=== PATIENT | male | born 1960 | race African-American/Black ===

== ENCOUNTER 2017-02-25 10:06 | Inpatient (IN) ==
[2017-02-25] MEDS ORDERED: SODIUM CHLORIDE 0.9% 1,000 ML IV STA (10:30)
[2017-02-25] MEDS ORDERED: ONDANSETRON 4 MG/2 ML VIAL ONE (10:47)
[2017-02-25] MEDS ORDERED: HYDROmorphone 2 MG/1 ML VIAL ONE ×2 (10:48→13:27)
[2017-02-25 10:51] LABS: Basophils % 0.2 % (0.0-0.8); Hematocrit 39.6 VOL% (42.0-52.0); Hemoglobin 13.5 GM/DL (14.0-18.0); Immature Granulocytes Absolute 0.49 #; Lymphocytes # 1.7 10*3/uL (1.4-4.0); Lymphocytes % 6.7 % (21.2-54.2); Mean Corpuscular HGB Conc 34.1 GM/DL (32-36); Mean Corpuscular Hemoglobin 28 PG (27-34); Mean Corpuscular Volume 83.4 FL (87-102); Mean Platelet Volume 9.7 FL (9.6-12.0); Monocytes # 2.9 10*3/uL (0.11-0.8); Monocytes % 11.6 % (1.7-12.7); Neutrophils # 19.8 10*3/uL (1.4-7.4); Neutrophils % 79.5 % (38.7-73.9); Platelet Count 250 T/CUMM (130-400); Red Blood Count 4.75 MC/CUMM (3.8-5.5); Red Cell Distribution Width 13.5 % (9.3-17.3); White Blood Count 24.9 T/CUMM (4-12)
[2017-02-25] MEDS ORDERED: ONDANSETRON 4 MG/2 ML VIAL IV STA (10:59)
[2017-02-25] MEDS ORDERED: HYDROmorphone 2 MG/1 ML VIAL IV STA ×2 (10:59→14:14)
[2017-02-25 11:14] LABS: Band Neutrophils 5 % (0-10); Hypochromasia 1+; Lymphocytes 4 % (20-55); Platelet Estimate Normal; Segmented Neutrophils 80 % (50-85); Total Cells Counted 100
[2017-02-25 11:20] LABS: Albumin 3.5 G/DL (3.4-5.0); Bilirubin,Total 1.1 MG/DL (0.2-1.0); Calcium 9.4 MG/DL (8.5-10.1); Osmolality,Calculated 276.8 MOS/KG (273-304); Potassium 4.6 MMOL/L (3.5-5.1); Total Protein 7.7 G/DL (6.4-8.3)
--- NOTE | 2017-02-25 11:27 | CT Report ---
CT abdomen pelvis Indication: Hemoptysis Comparison: None available Technique: Axial CT imaging of the abdomen and pelvis is performed with intravenous and oral contrast. Contrast dose is 100 cc of Omnipaque 350. Findings: CT abdomen: The liver spleen pancreas and adrenal glands are normal in size and enhancement. No evidence of focal lesion is demonstrated in these solid organs. Kidneys are normal in size and enhancement. No evidence of hydronephrosis or nephrolithiasis is seen. Small hiatal hernia is present. The bowel caliber is normal and no wall thickening or adjacent inflammatory change is seen. No evidence of free fluid or free air is present. CT pelvis: The pelvic bowel appears within normal limits. Bladder shows no evidence of abnormality. The pelvic organs show no evidence of abnormality Impression: No evidence of abnormality demonstrated This CT exam was performed using one or more the following dose reduction techniques: Automated exposure control, adjustment of the MA and/or KV according to patient size, or use of iterative reconstruction technique. PROCEDURE INTERPRETED AT [facility] DEPARTMENT OF RADIOLOGY Final Report Signed by: Dr. Mike Bagley
--- NOTE | 2017-02-25 11:32 | CT Report ---
History: Chest pain. Coughing up blood. Fever Date: 02/25/2017 Study: CT chest with IV contrast with pulmonary embolus technique Comparison exam: No previous chest CT available Spiral CT sections were obtained through the lungs following the IV administration of 100 mL of Omnipaque 350 without immediate complication. Multiplanar reconstruction images are also evaluated. The CT exam was performed using one or more of the following dose reduction techniques: Automated exposure control, adjustment of the mA and/or kV according to patient size, or use of iterative reconstruction technique. There is no discrete filling defect within the pulmonary arterial tree to suggest acute pulmonary embolic disease. There is an area of focal airspace disease measuring up to 7.9 cm maximum diameter in the right lower lobe posteriorly inferiorly and medially which could represent pneumonia or could represent focal alveolar pulmonary hemorrhage in this patient with a history of hemoptysis. There is mild right-sided pleural effusion. There is mild platelike subsegmental atelectasis in the lower lungs bilaterally. There is no thoracic aortic aneurysm or dissection. There is no mediastinal lymphadenopathy by short axis diameter criteria. There is no mediastinal mass otherwise. Aside from a small hiatal hernia, partially visualized upper abdomen is grossly unremarkable where seen. Impression: No evidence of acute pulmonary embolic disease. Pneumonia versus aspiration versus localized alveolar pulmonary hemorrhage right lower lobe, not readily apparent on the chest x-ray from 02/24/2017. Small right pleural effusion PROCEDURE INTERPRETED AT [facility] DEPARTMENT OF RADIOLOGY Final Report Signed by: Dr. Marjan Duggan
--- NOTE | 2017-02-25 11:51 | Emergency Department Note ---
David Chowdary Brooke, am scribing for, and in the presence of, Jacob Gleason MD 10:50. Rosibel Chowdary Phillip K, MD, personally performed the services described in this documentation, ascribed by Elham Hernandez in my presence, and it is both accurate and complete . Arrival - Arrival Chief Complaint: Upper Respiratory Stated Complaint: Right side pain ED Nursing Triage Note: pt ambulatory to triage with c/o having right side pain with cough states coughing up bright red blood , painful inspirations. pt states onset yesterday around 1100 pt states he was seen here in ER for same c/ o and was told he had bronchitis and was sent home. pt states pain is not any better. Mode of Arrival: Ambulatory Limitations: No Limitations Source: Patient, Significant other, RN Notes Reviewed Time Seen by Provider: 02/25/17 10:33 - History of Present Illness HPI Narrative: Patient is a 56 year old male who presents to the ED with c/o right sided pain and coughing up blood. Patient was in the ED, yesterday, with the right sided pain and sent home with diagnosis of bronchitis. Patient says he started coughing up blood this morning. He says the blood is mixed with sputum. The sputum is "light yellow." Patient says the right side pain eased up some yesterday after being in the ED but worsened again and he says he "did not get any sleep last night." He describes the pain as sharp and worsened with any kind or movement or breathing. says Patient has had an intermittent fever. The last time his temperature was checked it was 100.4. During triage, his temperature was 98.9. Patient denies having any chills and blood in his stool/ melena. He has PMHx of GERD. Patient is not a smoker. Patient had a normal chest x-ray yesterday and a normal urinalysis. His white blood count was 16, 000. We placed him on Levaquin yesterday think he may have a pneumonia that had not manifested itself on chest x-ray. Allergies/Adverse Reactions: Allergies Allergy/AdvReac Type Severity Reaction Status Date / Time No Known Allergies Allergy Verified 02/25/17 10:19 Home Medications: Home Medications Medication Instructions Recorded Confirmed Type Levofloxacin Tab [Levaquin Tab] 500 mg PO DAILY #10 tablet 02/24/17 02/25/17 Rx Omeprazole [Prilosec] 20 mg PO DAILY 02/25/17 02/25/17 History guaiFENesin [Mucinex] 600 mg PO DAILY 02/25/17 02/25/17 History Review of System - Review of System 12 point system: reviewed and no additional remarkable complaints except as stated - Review of System Constitutional: Present: fever. Absent: chills Respiratory: Present: cough (blood and sputum). Absent: respiratory distress Gastrointestinal: Absent: melena, hematochezia Musculoskeletal: Present: other (Right side pain) Skin: Absent: rash Medical,Surgical,& Family Hx - Medical History Gastrointestinal: History of: GERD - Social History Smoking Status: Never smoker Frequency of Alcohol Use: None Type of Drug Use: None Exam Vital Signs: Vital Signs Temperature 98.9 F 02/25/17 10:15 Pulse Rate 92 H 02/25/17 10:15 Respiratory Rate 17 02/25/17 10:15 Blood Pressure 136/83 02/25/17 10:15 O2 Sat by Pulse Oximetry 97 02/25/17 10:15 - General General appearance: alert, in no apparent distress - Head Head exam: Present: atraumatic, normocephalic - Eye Eye exam: Present: normal appearance, PERRL, EOMI - ENT ENT exam: Present: normal exam - Neck Neck exam: Present: normal inspection - Chest Chest inspection: Present: normal inspection, symmetric chest wall rise - Respiratory Respiratory exam: Present: rales (Right base.), other (Left lung clear) - Cardiovascular Cardiovascular exam: Present: normal rhythm, tachycardia, normal heart sounds - Abdominal Exam Abdominal exam: Present: soft, tenderness (Diffuse tenderness to direct palpation but worse in the RUQ), normal bowel sounds. Absent: distention - Extremities Exam Extremities exam: Present: normal inspection - Back Exam Back exam: Present: normal inspection - Neurological Exam Neurological exam: Present: alert, oriented X3 - Psychiatric Psychiatric exam: Present: normal affect, normal mood - Skin Skin exam: Present: warm, dry, intact, normal color Course Course Narrative: Patient discussed with the hospitalist. Results - Labs CBC & BMP: 02/25/17 10:43 02/25/17 10:43 Lab Results: I have reviewed the patients labs Labs: Laboratory Tests 02/25/17 10:43 WBC 24.9 H D RBC 4.75 Hgb 13.5 L Hct 39.6 L MCV 83.4 L MCH 28 MCHC 34.1 RDW 13.5 Plt Count 250 MPV 9.7 Neut % (Auto) 79.5 H Lymph % (Auto) 6.7 L Coke % (Auto) 11.6 Eos % (Auto) 0.0 Baso % (Auto) 0.2 Neut # (Auto) 19.8 H Lymph # (Auto) 1.7 Coke # (Auto) 2.9 H Eos # (Auto) 0.0 Baso # (Auto) 0.0 Immature Gran % 2.0 Nucleated RBC % 0.0 Immature Gran # 0.49 Nucleated RBCs # 0.00 - Diagnostic Findings Procedure: CT Abdomen and Pelvis: report reviewed by me (No evidence of abnormality demonstrated.), CT: report reviewed by me (no evidence of acute pulmonary embolic disease.) Disposition Clinical Impression: Pneumonia right lower lobe, Hemoptysis Case discussed with: patient, patient's family Disposition: Still a Patient Condition: Guarded Additional Instructions: Admit to the hospitalist.
[2017-02-25] MEDS ORDERED: ALBUTEROL 2.5 MG/3 ML NEB RESP TX PRN (13:02)
[2017-02-25] MEDS ORDERED: cefTRIAXone 1,000 MG in SODIUM CHLORIDE 0.9% 100 ML IV STA (13:08)
[2017-02-25] MEDS ORDERED: cefTRIAXone 1,000 MG VIAL ONE (13:16)
--- NOTE | 2017-02-25 13:21 | Hospitalist History & Physical ---
<Charly Stroud - Last Filed: 02/25/17 13:05> Assessment and Plan (1) Sepsis Status: Acute Assessment and plan: At the time of ED presentation the patient was noted to be tachycardic with a heart rate of 92, white blood cell count was noted at 24.9, and CT chest reported right lower lobe pneumonia. The patient meets the sepsis criteria. Lactic acid was obtained and was noted at 1.5. We will start empiric antibiotic coverage after blood cultures have been obtained. We will gently rehydrate and reassess in a.m. Current Visit: Yes (2) Right lower lobe pneumonia Status: Acute Assessment and plan: CT chest suggested right lower lobe pneumonia. We will start empiric antibiotic coverage, inhaled bronchodilators, PPI's, placed sequential compression devices. In addition due to the hemoptysis, we will consult pulmonary to evaluate and assist during the clinical encounter. Current Visit: Yes History of Present Illness Chief complaint: Right flank pain/hemoptysis History of present illness: This is a 56-year-old male that presented to the ED at [facility] this morning for the evaluation of right side pain and hemoptysis. Patient has a medical history significant for gastroesophageal reflux disease; however the patient reports no significant surgical history. The patient reported the onset of symptoms 1 day prior to presentation. The patient reported to the ED here at [facility] for the above complaint where he was seen, diagnosed with bronchitis, and prescribed Levaquin at the time of discharge. He reported that his symptoms fail to improve. His purchased some Mucinex and the patient started to take it in an effort to alleviate his symptoms. Shortly after starting the Mucinex, the patient started to have a productive cough however the sputum was light yellow in color with some blood-tinged noted. The patient reported inability to sleep last night and the pain worsened upon minimal movement and breathing. The reported that the patient did have fever which was noted at 100.4; the patient denied chills and bloody stools. As the patient's symptoms fail to improve, his became alarmed and subsequently brought him back to the emergency room for further evaluation. The patient was assessed at the time of ED presentation. The patient temperature was noted at 98.9. The patient was tachycardic with a heart rate noted at 92. Labs were obtained; compete blood count reported white blood cell count of 24.9, hemoglobin 13.5, hematocrit 39.6, and platelet count of 250. Comprehensive metabolic profile reported sodium at 137, potassium 4.6, chloride 102, carbon dioxide 29, BUN 18, creatinine 1.40, glucose 136, calcium 9.4, total bilirubin 1.10, AST 16, ALT 17, total protein 7.7 and lactic acid was noted at 1.5. CT chest reported pneumonia versus aspiration versus localized developed pulmonary hemorrhage in the right lower lobe not really apparent on the chest x-ray from the previous day in small right pleural effusion. CT abdomen and pelvis was essentially unremarkable for any acute intra-abdominal processes. After brief discussion with both Dr. Gleason and Dr. Delarosa, the patient will be admitted to the hospitalist service for continuation of care. We have requested a pulmonology consultation to evaluate and assist during the clinical encounter. Home medications have been reviewed and reconciled. CODE STATUS discussed; patient is a FULL CODE. Home Medications Medication Instructions Recorded Confirmed Type Levofloxacin Tab [Levaquin Tab] 500 mg PO DAILY #10 tablet 02/24/17 02/25/17 Rx Omeprazole [Prilosec] 20 mg PO DAILY 02/25/17 02/25/17 History guaiFENesin [Mucinex] 600 mg PO DAILY 02/25/17 02/25/17 History Allergies Allergy/AdvReac Type Severity Reaction Status Date / Time No Known Allergies Allergy Verified 02/25/17 10:19 Medical,Surgical,& Family Hx - Medical History Medical History: noncontributory Gastrointestinal: History of: GERD - Social History Smoking Status: Never smoker Frequency of Alcohol Use: None Type of Drug Use: None 12 point system: reviewed and no additional remarkable complaints except as stated Exam - Constitutional Vitals: Period Temp Pulse Resp BP Sys/Markham Pulse Ox Last 24 Hr 98.9 F 92 17 136/83 97 General appearance: normal weight, mild distress - Head Head exam: Present: normal inspection, normocephalic, atraumatic - Eye Eye exam: Present: EOMI. Absent: conjunctival injection Pupils: Present: JERRY, normal accommodation - ENT ENT exam: Present: normal exam, normal external ear exam, normal oropharynx - Neck Neck exam: Present: normal inspection. Absent: lymphadenopathy, meningismus, thyromegaly - Respiratory Respiratory exam: Present: rales (Right lower base) - Cardiovascular Cardiovascular exam: Present: regular rate and rhythm, tachycardia - GI/Abdominal GI/Abdominal exam: Present: normal bowel sounds, tenderness (Right upper quadrant), soft - Extremities Exam Extremities exam: Present: normal inspection, normal capillary refill, full ROM , edema - Back Exam Back exam: Present: normal inspection - Neurological Exam Neurological exam: Present: alert, oriented X3, CN II-XII intact - Psychiatric Psychiatric exam: Present: normal affect, normal mood - Skin Skin exam: Present: normal color, warm, dry Results - Labs CBC & BMP: 02/25/17 10:43 02/25/17 10:43 Lab Results: I have reviewed the past 24 hour labs Sepsis - Sepsis Classification of Sepsis: Sepsis Possible / Suspected infection from: Right lower lobe pneumonia - Physical Exam Physical Exam: The patient was assessed at the time of ED presentation. The patient temperature was noted at 98.9. The patient was tachycardic with a heart rate noted at 92. Labs were obtained; compete blood count reported white blood cell count of 24.9 and lactic acid was noted at 1.5. CT chest reported pneumonia versus aspiration versus localized developed pulmonary hemorrhage in the right lower lobe. - Physical Exam Respiratory exam: rales (Right lower lung bases) Peripheral pulses: Radial (L): 2+, Radial (R): 2+, Dorsalis Pedis (L) PM: 2+, Dorsalis Pedis (R) PM: 2+, Posterior Tibialis (L): 2+, Posterior Tibialis (R): 2 + Cardiovascular exam: tachycardia Skin exam: normal color <Debbie Delarosa - Last Filed: 02/25/17 16:20> History of Present Illness History of present illness: Patient seen and examined independently of [employer], agree with history, assessment and plan as documented. Patient with several days of productive cough. Noted to have blood in his sputum of increasing amounts throughout the day. CT with probable pneumonia but possible alveolar hemorrhage. Starting on rocephin and azithromycin, breathing treatments. Will consult pulmonary for assistance. Exam - Constitutional Vitals: Period Temp Pulse Resp BP Sys/[place]ham Pulse Ox Last 24 Hr 98.9 F-99.9 F 92-101 17-20 136-149/67-92 94-97 Results - Labs CBC & BMP: 02/25/17 10:43 02/25/17 10:43
[2017-02-25] MEDS: cefTRIAXone 1,000 MG in SODIUM CHLORIDE 0.9% 100 ML IV SCH (15:03)
[2017-02-25] MEDS: AZITHROMYCIN INJ 500 MG in SODIUM CHLORIDE 0.9% 250 ML IV SCH (16:28)
[2017-02-25] MEDS: MORPHINE 2 MG/1 ML SYRINGE IV PRN ×2 (16:28→21:26)
[2017-02-25] MEDS: SODIUM CHLORIDE 0.9% 1,000 ML IV SCH (16:30)
--- NOTE | 2017-02-25 17:37 | Pulmonology Consult Note ---
Assessment and Plan (1) Sepsis Status: Acute Assessment and plan: The patient has gotten fairly ill but is doing a little better now. He will continue with fluids and antibiotics. Current Visit: Yes (2) Right lower lobe pneumonia Status: Acute Assessment and plan: Patient has an acute onset of right lower lobe pneumonia with blood-tinged sputum. This certainly looks like pneumococcal pneumonia or some type of bacterial pneumonia. He will continue with antibiotics. Current Visit: Yes History of Present Illness Chief complaint: Shortness of breath History of present illness: Mr. Garibay is a 56 year old black male that is very healthy and has had very little problems in the past. He has had some reflux problems and takes Prilosec. About 3 days ago he started having a little bit of sinus drainage and cough and then felt a little better. However the last 24-48 hours he started having more chest congestion, coughing and fever. He started coughing up some blood-tinged sputum. He now comes in with little more shortness of breath along with his congestion. He has been found to have right lower lobe pneumonia. He has never been a smoker and no history of asthma or other lung problems. Home Medications Medication Instructions Recorded Confirmed Type Levofloxacin Tab [Levaquin Tab] 500 mg PO DAILY #10 tablet 02/24/17 02/25/17 Rx Omeprazole [Prilosec] 20 mg PO DAILY 02/25/17 02/25/17 History guaiFENesin [Mucinex] 600 mg PO DAILY 02/25/17 02/25/17 History Allergies Allergy/AdvReac Type Severity Reaction Status Date / Time No Known Allergies Allergy Verified 02/25/17 10:19 - Constitutional Constitutional: Present: chills, fever(s), malaise - EENT Eyes: Absent: loss of vision Ears: Absent: decreased hearing Nose, mouth and throat: Present: nasal congestion. Absent: headache(s), sinus pressure - Cardiovascular Cardiovascular: Present: chest pain at rest, dyspnea. Absent: edema - Respiratory Respiratory: Present: cough, dyspnea, hemoptysis, pain on inspiration, change in phlegm color - Gastrointestinal Gastrointestinal: Present: heartburn. Absent: abdominal pain, change in bowel habits, dysphagia, nausea, vomiting - Musculoskeletal Musculoskeletal: Absent: arthralgias, muscle weakness - Neurological Neurological: Absent: abnormal speech, focal weakness, paresthesias Exam (Pulmonay) H&P - Constitutional Vitals: Period Temp Pulse Resp BP Sys/Markham Pulse Ox Last 24 Hr 98.9 F-99.9 F 92-101 17-20 136-149/67-92 94-97 General appearance: normal weight, mild distress - Head Head exam: Present: normal inspection, normocephalic - Eye Eye exam: Present: EOMI. Absent: scleral icterus - ENT ENT exam: Present: normal exam - Neck Neck exam: Absent: lymphadenopathy, thyromegaly - Respiratory Respiratory exam: Present: rales, other (Patient has good breath sounds bilaterally without any wheezing. He does have some crackles in the right base. ). Absent: accessory muscle use, wheezes - Cardiovascular Cardiovascular exam: Present: regular rate and rhythm. Absent: gallop, systolic murmur - GI/Abdominal GI/Abdominal exam: Present: normal bowel sounds, soft. Absent: organomegaly, tenderness - Extremities Exam Extremities exam: Absent: calf tenderness, edema - Neurological Exam Neurological exam: Present: alert, oriented X3, CN II-XII intact. Absent: motor sensory deficit - Psychiatric Psychiatric exam: Present: normal affect - Skin Skin exam: Present: warm, dry Medical,Surgical,& Family Hx - Medical History Psychological: No history of: Anxiety Disorders, ADHD, Behavior Problems, Bipolar Disorder, Depression, Previous Suicide Attempt, Psychiatric/Substance Abuse Tx, Schizophrenia, Violent Behavior, Psychiatric Problems Gastrointestinal: History of: GERD - Social History Smoking Status: Never smoker Frequency of Alcohol Use: None Type of Drug Use: None Results - Labs CBC & BMP: 02/25/17 10:43 02/25/17 10:43 - Diagnostic Findings Procedure: Chest x-ray: image reviewed by me, report reviewed by me (Very hard to see the infiltrate in the right base.), CT - chest: image reviewed by me, report reviewed by me (CT shows a right lower lobe consolidation.)
[2017-02-25] MEDS: ALBUTEROL/IPRATROPIUM 3 ML NEB RESP TX SCH (19:40)
[2017-02-25] MEDS: HYDROmorphone 2 MG/1 ML VIAL IV PRN (23:55)
[2017-02-26] MEDS: ALBUTEROL/IPRATROPIUM 3 ML NEB RESP TX SCH ×4 (00:14→20:20)
[2017-02-26] MEDS: SODIUM CHLORIDE 0.9% 1,000 ML IV SCH ×2 (00:50→09:52)
[2017-02-26] MEDS: ONDANSETRON 4 MG/2 ML VIAL IV PRN ×2 (05:42)
[2017-02-26] MEDS: HYDROmorphone 2 MG/1 ML VIAL IV PRN (05:43)
--- NOTE | 2017-02-26 05:59 | EKG Report ---
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
[2017-02-26] MEDS ORDERED: METOPROLOL TARTRATE 5 MG/5 ML VIAL IV ONE (06:03)
[2017-02-26] MEDS ORDERED: ENOXAPARIN 100 MG/ML SYRINGE SUBCUT ONE (06:08)
[2017-02-26 06:28] LABS: Basophils % 0.1 % (0.0-0.8); Hematocrit 37.8 VOL% (42.0-52.0); Hemoglobin 12.6 GM/DL (14.0-18.0); Immature Granulocytes % 0.5 %; Immature Granulocytes Absolute 0.08 #; Lymphocytes # 1.3 10*3/uL (1.4-4.0); Lymphocytes % 8.4 % (21.2-54.2); Mean Corpuscular HGB Conc 33.3 GM/DL (32-36); Mean Corpuscular Hemoglobin 28 PG (27-34); Mean Corpuscular Volume 84.8 FL (87-102); Mean Platelet Volume 10.5 FL (9.6-12.0); Monocytes # 1.3 10*3/uL (0.11-0.8); Monocytes % 8.7 % (1.7-12.7); Neutrophils # 12.3 10*3/uL (1.4-7.4); Neutrophils % 82.3 % (38.7-73.9); Platelet Count 247 T/CUMM (130-400); Red Blood Count 4.46 MC/CUMM (3.8-5.5); Red Cell Distribution Width 13.9 % (9.3-17.3); White Blood Count 14.9 T/CUMM (4-12)
[2017-02-26 06:53] LABS: Band Neutrophils 3 % (0-10); Burr Cells Slight; Lymphocytes 5 % (20-55); Ovalocytes Slight; Platelet Estimate Adequate; Segmented Neutrophils 86 % (50-85); Total Cells Counted 100
[2017-02-26 06:55] LABS: Magnesium 2.2 MG/DL (1.8-2.4)
[2017-02-26 06:57] LABS: Free T4 (Free Thyroxine) 0.87 NG/DL (0.76-1.46); Thyroid Stimulating Hormone 2.67 uIU/ml (0.358-3.74)
[2017-02-26 07:58] LABS: Albumin 2.7 G/DL (3.4-5.0); Bilirubin,Total 0.6 MG/DL (0.2-1.0); Calcium 8.5 MG/DL (8.5-10.1); Osmolality,Calculated 280.7 MOS/KG (273-304); Phosphorous 2.9 MG/DL (2.5-4.9); Potassium 4.1 MMOL/L (3.5-5.1); Total Protein 6.8 G/DL (6.4-8.3)
--- NOTE | 2017-02-26 08:00 | XRay Report ---
XR chest 1V portable Indication: Shortness of breath Comparison: Chest x-ray 02/24/2017 Technique: Portable AP chest was performed. Findings: Somewhat confluent airspace opacities are demonstrated bilaterally within the lung bases more prevalent within the left lung base. Heart size is borderline to minimally enlarged. Small right-sided pleural effusion suggested. Upper lungs are clear. Bones and soft tissues demonstrate no significant abnormalities. Impression: 1. Appearance of the chest is most suggestive of pulmonary edema, infectious process not excluded. 2. Small right-sided pleural effusion is present. 02/26/2017 7:57 AM PROCEDURE INTERPRETED AT [facility] DEPARTMENT OF RADIOLOGY Final Report Signed by: Dr. Bud Swan
[2017-02-26 08:14] LABS: Risk Ratio 6.7; VLDL CHOLESTEROL 20.6 MG/DL
[2017-02-26] MEDS ORDERED: METOPROLOL TARTRATE 25 MG TABLET PO SCH (09:00)
--- NOTE | 2017-02-26 09:20 | Pulmonology Progress Note ---
Pulmonary - PN: Subj Interval history: The patient is a 56-year-old black man has been very healthy. He came in with a couple days of fever cough and congestion and has a right lower lobe pneumonia. Last night he had atrial fibrillation and was moved to telemetry. He apparently is having trouble voiding and may be a little constipated also. His breathing seems to be about the same. His fever is down and his O2 saturations are okay. Exam (Progress Note) - Constitutional Vitals: Period Temp Pulse Resp BP Sys/Markham Pulse Ox Last 24 Hr 95.8 F-100.6 F 75-130 16-24 109-165/62-97 90-100 Exam: General appearance: normal weight, mild distress, his breathing is about the same. - Head Head exam: Present: normal inspection, normocephalic - Eye Eye exam: Present: EOMI. Absent: scleral icterus - ENT ENT exam: Present: normal exam - Neck Neck exam: Absent: lymphadenopathy, thyromegaly - Respiratory Respiratory exam: Present: He has some crackles in the right base but is moving air fairly well without wheezing. - Cardiovascular Cardiovascular exam: Present: His heart rate is irregular now but controlled - GI/Abdominal GI/Abdominal exam: Present: His abdomen is a little distended but is soft and nontender. - Extremities Exam Extremities exam: Absent: calf tenderness, edema, he has no signs of phlebitis. - Neurological Exam Neurological exam: Present: alert, oriented X3, CN II-XII intact. Absent: motor sensory deficit - Psychiatric Psychiatric exam: Present: normal affect - Skin Skin exam: Present: warm, dry Results - Labs CBC & BMP: 02/26/17 06:03 02/26/17 06:03 - Diagnostic Findings Procedure: Chest x-ray: image reviewed by me, report reviewed by me (Chest x- ray suggests some mild bibasilar changes now.) Assessment and Plan (1) Sepsis Status: Acute Assessment and plan: The patient has gotten fairly ill but is doing a little better now. His blood pressure is stable and he actually may be a little overloaded now. Current Visit: Yes (2) Right lower lobe pneumonia Status: Acute Assessment and plan: Patient has an acute onset of right lower lobe pneumonia with blood-tinged sputum. This certainly looks like pneumococcal pneumonia or some type of bacterial pneumonia. He will continue with antibiotics. Current Visit: Yes (3) Atrial fibrillation Status: Acute Assessment and plan: He is in atrial fibrillation now and is going to be monitored. He has been started on Lovenox. His heart rate is under good control. Current Visit: Yes
[2017-02-26] MEDS: PANTOPRAZOLE 40 MG TABLET PO SCH (10:50)
--- NOTE | 2017-02-26 12:35 | ECHO Report ---
Kailee Garibay 02/26/2017 Exam Date: 09:01 Referring Physician: Agustina Woo Technologist: MARY Age: 56 Ht (in): 68 Wt (lb): 210 MExam Location: [facility] Gender: Echo [id number]: Atrial fibrillation, RLL pneumonia,Indications:Bronchitis, Pleurisy, Hemoptysis, Sepsis BP: 131 / 62 HR: 87 Atrial fibrillationRhythm: GoodTechnical Quality: IMPRESSIONS Left ventricular ejection fraction is estimated at 60 %. Diastolic parameters are equivocal. The patient is in atrial fibrillation. Tricuspid regurgitation velocities suggest a RVSP of 19 mmHg plus the right atrial pressure. MEASUREMENTS (Male / Female) Normal Values 2D ECHO LV Diastolic Diameter PLAX 4.1 cm 4.2 - 5.9 / 3.9 - 5.3 cm LV Systolic Diameter PLAX 2.5 cm LV Fractional Shortening PLAX 38.7 % IVS Diastolic Thickness 1.4 cm 0.6 - 1.0 / 0.6 - 0.9 cm LVPW Diastolic Thickness 1.3 cm 0.6 - 1.0 / 0.6 - 0.9 cm RV Internal Dim ED PLAX 2.6 cm Aortic Root Diameter 3.2 cm LA Systolic Diameter LX 4.5 cm 3.0 - 4.0 / 2.7 - 3.8 cm DOPPLER TR Peak Velocity 217.0 cm/s TR Peak Gradient 18.8 mmHg FINDINGS Left Ventricle Normal left ventricular cavity size. Mild left ventricular hypertrophy. Left ventricular ejection fraction is estimated at 60 %. Diastolic parameters are equivocal. The patient is in atrial fibrillation. Right Ventricle The right ventricle is normal in size and function. Right Atrium The right atrium is mildly enlarged. Left Atrium The left atrium is mildly enlarged. Mitral Valve Morphologically normal mitral valve. Trivial mitral valve regurgitation. Aortic Valve Morphologically normal aortic valve without significant sclerosis or stenosis. There is no aortic regurgitation. Tricuspid Valve Morphologically normal tricuspid valve. Trace to mild tricuspid valve regurgitation. Tricuspid regurgitation velocities suggest a RVSP of 19 mmHg plus the right atrial pressure. Pulmonic Valve Morphologically normal pulmonic valve without significant stenosis. There is no pulmonic regurgitation. Pericardium Normal pericardium without effusion. Aorta Normal ascending aorta dimension. Cara Dye (Electronically Signed) 26 February 2017 Final Date: 12:34
--- NOTE | 2017-02-26 14:15 | Hospitalist Progress Note ---
Assessment and Plan - Time spent with patient Time spent with patient: Greater than 30 minutes (1) Urinary retention Status: Acute Assessment and plan: Straight cath performed. Okay to repeat as needed. Decrease opiates and treat constipation Current Visit: Yes (2) Constipation Status: Acute Assessment and plan: KUB ordered. Laxatives ordered. Current Visit: Yes (3) Right lower lobe pneumonia Status: Acute Assessment and plan: Continue Rocephin and Zithromax. Pulmonary following. Current Visit: Yes (4) Atrial fibrillation with rapid ventricular response Status: Acute Assessment and plan: Acute in nature. Likely related to his underlying infection. Secondary to increased cardiac output due to infection. Echo shows Left ventricular ejection fraction is estimated at 60 %. Diastolic parameters are equivocal. The patient is in atrial fibrillation. Tricuspid regurgitation velocities suggest a RVSP of 19 mmHg plus the right atrial pressure. Cardiology consult pending Current Visit: Yes Hospitalist: Subjective Interval history: Patient seen and examined. No acute events overnight. Case discussed with nursing staff. Labs reviewed. Patient seen and examined with Dr. Angel. The patient's family members and nurse are at the bedside. He reports constipation and urinary retention. Bladder scan shows 400 Plus mL's of urine. Straight cath was performed. KUB and laxatives have been ordered. Continue antibiotics for pneumonia. Patient was transferred to telemetry for new onset A. fib. Cardiology consult pending. Exam - Constitutional Vitals: Period Temp Pulse Resp BP Sys/Markham Pulse Ox Last 24 Hr 95.8 F-100.6 F 75-130 16-24 109-165/62-97 90-100 Exam: Constitutional System: Mild distress. No tremulousness. Head: Normocephalic, atraumatic. Ears, Nose and Throat System: No pain or tenderness. No epistaxis or discharge Eyes System: Pupils equal, round, and reactive. Extraocular muscles intact. Neck: Supple, without adenopathy, No jugular venous distention. Respiratory System: Chest rhonchi in the right lower lobe to auscultation. Cardiovascular System: Heart with irregular rate and rhythm GI System: Abdomen firm and tender to palpation. Normo active bowel sounds present. Musculoskeletal System: limbs with no pedal edema. Full distal pulses. Neurological System: No discernable sensory deficit. No aphasia Psychiatric System: Conversation is rational Results - Labs CBC & BMP: 02/26/17 06:03 02/26/17 06:03 Lab Results: I have reviewed the past 24 hour labs - Diagnostic Findings Procedure: Chest x-ray: image reviewed by me, report reviewed by me, KUB x-ray: pending
[2017-02-26] MEDS: POLYETHYLENE GLYCOL POWDER 17 GM PACK PO SCH (14:31)
[2017-02-26] MEDS: DOCUSATE SODIUM 100 MG CAPSULE PO SCH ×2 (14:31→21:20)
--- NOTE | 2017-02-26 14:35 | Cardiology Consult Note ---
Christy Chowdary April RN, am scribing for, and in the presence of, Francesco Milner MD 14:34. Assessment and Plan - Time spent with patient Time spent with patient: Greater than 30 minutes (Due to assessment, planning, documentation, medication) (1) Atrial fibrillation with rapid ventricular response Status: Acute Current Visit: Yes (2) GERD (gastroesophageal reflux disease) Status: Chronic Current Visit: Yes (3) Hemoptysis Status: Acute Current Visit: Yes (4) Right lower lobe pneumonia Status: Acute Current Visit: Yes History of Present Illness - Data of Consult Patient: new to practice Consult date: 02/26/17 Requesting Physician: Katia Carmona - Consult Narrative Reason for consult: New onset atrial fibrillation 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 Garibay is a 56 year old male who has never seen a disability specialist. He denies ever having had a heart catheterization or stress test done. He denies any known heart disease or heart rhythm problems. Medical history is positive for GERD. Surgical history includes right wrist. He reports he is a lifetime non- smoker. He lives at home with his . Mr. Garibay was admitted February 25, 2017 with complaints of right flank pain and hemoptysis. CT suggested right lower lobe pneumonia and he was started on antibiotic coverage and inhaled bronchodilators. This morning around 5 AM. Developed chest tightness in the center of his chest that came on at rest. He said that it felt like indigestion. He rated a 7 on a scale of 1-10. He also had nausea and vomiting associated with this pain. He denies having had any palpitations or dizziness. He says he has been short of breath since admission and the shortness of breath was no worse with this chest pain. The pain is reproducible to palpation. An EKG was done showing atrial fibrillation with rapid ventricular response, heart rate of 117. He says he was given a shot for his pain and it was relieved. He was given Lopressor 5 mg IV 1 days and started on Lovenox injections and Lopressor 12.5 mg p.o. daily. Currently he is resting in bed with oxygen in use via nasal cannula, O2 sat is 91%. He reports his chest tightness is beginning to return and rates it a 3 on a scale of 1-10 presently. 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 He has not had any palpitations now or earlier. He is having some abdominal discomfort. Bladder scan this morning showed 414 mL residual urine. Nursing staff is about to perform an in and out cath. An echocardiogram has been ordered. Lab data today: BC 14.9 hemoglobin 12.6 hematocrit 37.8 Sodium 138 potassium 4.1 chloride 103 CO2 26 BUN 17 creatinine 1.3 Glucose 177 hemoglobin A1c 6.6 Troponin negative 1 Triglycerides 103 cholesterol 134 LDL 75 HDL 20 Cardiology addendum Patient examined chart reviewed and discussed with nurse Jennifer Harrison RN. Patient admitted for right lower lobe pneumonia. He developed first onset atrial fibrillation. Patient is newly diagnosed diabetic. Blood sugar 223 today. A1c level 6.6. Lifetime non-smoker and nondrinker. No history of exertional angina or heart failure. 5 feet 2 inches tall, 210 pounds. GE reflux on Prilosec Patient has 17 siblings. Only 6 siblings do not have hypertension or diabetes. Father was diabetic and from stroke age 87. Mother was diabetic and from metastatic breast cancer age 63. CT chest negative for pulmonary embolus. Plan Begin sotalol 80 mg twice daily Echo Doppler IV antibiotics and nebs Risk factor modification CC: Raz Haynes MD - Home Medications and Allergies Home Medications: Home Medications Medication Instructions Recorded Confirmed Type Levofloxacin Tab [Levaquin Tab] 500 mg PO DAILY #10 tablet 02/24/17 02/25/17 Rx Omeprazole [Prilosec] 20 mg PO DAILY 02/25/17 02/25/17 History guaiFENesin [Mucinex] 600 mg PO DAILY 02/25/17 02/25/17 History Allergies/Adverse Reactions: Allergies Allergy/AdvReac Type Severity Reaction Status Date / Time No Known Allergies Allergy Verified 02/25/17 10:19 - Constitutional Constitutional: Present: as per HPI - EENT Eyes: Present: requires corrective lense. Absent: blurry vision Ears: Absent: decreased hearing, ear pain, tinnitus Nose, mouth and throat: Absent: epistaxis, headache(s), hoarseness, neck pain - Cardiovascular Cardiovascular: Present: chest pain at rest, dyspnea, dyspnea on exertion, orthopnea. Absent: diaphoresis, edema, radiating jaw, neck or arm pain, lightheadedness, palpitations - Respiratory Respiratory: Present: cough, dyspnea, hemoptysis, dyspnea on exertion. Absent: wheezing - Gastrointestinal Gastrointestinal: Present: abdominal pain, nausea, vomiting. Absent: constipation, diarrhea, hematemesis, hematochezia, melena - Genitourinary Genitourinary: Present: difficulty urinating, dysuria, flank pain. Absent: hematuria - Musculoskeletal Musculoskeletal: Absent: back pain, limited range of motion, muscle weakness - Neurological Neurological: Absent: abnormal gait, abnormal speech, confusion, dizziness, frequent falls, headache(s), syncope - Psychiatric Psychiatric: Absent: anxiety, depression - Hematologic/Lymphatic Hematologic/Lymphatic: Absent: easy bleeding, easy bruising Medical,Surgical,& Family Hx - Medical History Gastrointestinal: History of: GERD - Surgical History Orthopedic Surgeries: Surgical HX of;: Orthopedic Surgery (Right wrist) - Social History Smoking Status: Never smoker Have you smoked in the last 12 months: No Frequency of Alcohol Use: None Type of Drug Use: None Marital Status: Lives With:: Spouse Functional capacity: independent ambulation Physical Examination Vital Signs Temp Pulse Resp BP Pulse Ox 98.9 F 92 H 17 136/83 97 02/25/17 10:15 02/25/17 10:15 02/25/17 10:15 02/25/17 10:15 02/25/17 10:15 General: Present: Appears Well, No Apparent Distress, Other (Pleasant and cooperative) Neck: Present: Supple Neck, Midline Trachea, No Bruit Cardiac: Present: Irregularly Regular, Tachycardia Lungs: Present: Decreased Breath Sounds, Scattered Rhonchi, Oxygen (Via nasal cannula), No Wheezes Neuro: Absent: Resting Tremor, Essential Tremor Abdomen: Present: Active Bowel Sounds, Tender, Firm, Distended Skin: Absent: Rash, Suspicious Lesions Extremities: Present: Normal Gait, No Edema, Normal Upper Extr. Pulses, Normal Lower Extr. Pulses Result/EKG - Labs CBC & BMP: 02/26/17 06:03 02/26/17 06:03 Lab Results: I have reviewed the past 24 hour labs Labs: Laboratory Results - last 24 hr 02/25/17 02/25/17 02/25/17 10:43 10:43 13:01 WBC 24.9 H D RBC 4.75 Hgb 13.5 L Hct 39.6 L MCV 83.4 L MCH 28 MCHC 34.1 RDW 13.5 Plt Count 250 MPV 9.7 Neut % (Auto) 79.5 H Lymph % (Auto) 6.7 L [place] % (Auto) 11.6 Eos % (Auto) 0.0 Baso % (Auto) 0.2 Neut # (Auto) 19.8 H Lymph # (Auto) 1.7 [place] # (Auto) 2.9 H Eos # (Auto) 0.0 Baso # (Auto) 0.0 Total Counted 100 Immature Gran % 2.0 Nucleated RBC % 0.0 Immature Gran # 0.49 Segmented Neutrophils 80 Band Neutrophils 5 Lymphocytes 4 L Monocytes 11 Nucleated RBCs # 0.00 Platelet Estimate Normal Hypochromasia 1+ Ovalocytes [place] Cells Morphology Comment Sodium 137 Potassium 4.6 Chloride 102 Carbon Dioxide 29 Anion Gap 10.6 BUN 18 Creatinine 1.40 H GFR Calculation 77 BUN/Creatinine Ratio 12.00 Glucose 136 H POC Glucose Hemoglobin A1c Calculated Osmolality 276.8 Lactic Acid 1.5 Calcium 9.4 Phosphorus Magnesium Total Bilirubin 1.10 H AST 16 ALT 17 Alkaline Phosphatase 68 Troponin I Total Protein 7.7 Albumin 3.5 Globulin 4.2 H Albumin/Globulin Ratio 0.8 L Triglycerides Cholesterol LDL Cholesterol VLDL Cholesterol HDL Cholesterol Heart Disease Risk Ratio Free T4 TSH 3rd Generation 02/26/17 02/26/17 02/26/17 06:03 06:03 06:03 WBC 14.9 H D RBC 4.46 Hgb 12.6 L Hct 37.8 L MCV 84.8 L MCH 28 MCHC 33.3 RDW 13.9 Plt Count 247 MPV 10.5 Neut % (Auto) 82.3 H Lymph % (Auto) 8.4 L [place] % (Auto) 8.7 Eos % (Auto) 0.0 Baso % (Auto) 0.1 Neut # (Auto) 12.3 H Lymph # (Auto) 1.3 L [place] # (Auto) 1.3 H Eos # (Auto) 0.0 Baso # (Auto) 0.0 Total Counted 100 Immature Gran % 0.5 Nucleated RBC % 0.0 Immature Gran # 0.08 Segmented Neutrophils 86 H Band Neutrophils 3 Lymphocytes 5 L Monocytes 6 Nucleated RBCs # 0.00 Platelet Estimate Adequate Hypochromasia Ovalocytes Slight [place] Cells Slight Morphology Comment Sodium Potassium Chloride Carbon Dioxide Anion Gap BUN Creatinine GFR Calculation BUN/Creatinine Ratio Glucose POC Glucose Hemoglobin A1c Calculated Osmolality Lactic Acid Calcium Phosphorus Magnesium Total Bilirubin AST ALT Alkaline Phosphatase Troponin I < 0.015 Total Protein Albumin Globulin Albumin/Globulin Ratio Triglycerides Cholesterol LDL Cholesterol VLDL Cholesterol HDL Cholesterol Heart Disease Risk Ratio Free T4 0.87 TSH 3rd Generation 2.670 02/26/17 02/26/17 02/26/17 06:03 06:03 06:03 WBC RBC Hgb Hct MCV MCH MCHC RDW Plt Count MPV Neut % (Auto) Lymph % (Auto) [place] % (Auto) Eos % (Auto) Baso % (Auto) Neut # (Auto) Lymph # (Auto) [place] # (Auto) Eos # (Auto) Baso # (Auto) Total Counted Immature Gran % Nucleated RBC % Immature Gran # Segmented Neutrophils Band Neutrophils Lymphocytes Monocytes Nucleated RBCs # Platelet Estimate Hypochromasia Ovalocytes [place] Cells Morphology Comment Sodium 138 Potassium 4.0 4.1 Chloride 103 Carbon Dioxide 26 Anion Gap 13.1 BUN 17 Creatinine 1.30 GFR Calculation 85 BUN/Creatinine Ratio 13.00 Glucose 177 H POC Glucose Hemoglobin A1c Calculated Osmolality 280.7 Lactic Acid Calcium 8.5 Phosphorus 2.9 Magnesium 2.2 Total Bilirubin 0.60 AST 14 ALT 14 L Alkaline Phosphatase 64 Troponin I Total Protein 6.8 Albumin 2.7 L Globulin 4.1 H Albumin/Globulin Ratio 0.6 L Triglycerides 103 Cholesterol 134 LDL Cholesterol 75.0 VLDL Cholesterol 20.6 HDL Cholesterol 20 L Heart Disease Risk Ratio 6.70 Free T4 TSH 3rd Generation 02/26/17 02/26/17 06:03 06:57 WBC RBC Hgb Hct MCV MCH MCHC RDW Plt Count MPV Neut % (Auto) Lymph % (Auto) [place] % (Auto) Eos % (Auto) Baso % (Auto) Neut # (Auto) Lymph # (Auto) [place] # (Auto) Eos # (Auto) Baso # (Auto) Total Counted Immature Gran % Nucleated RBC % Immature Gran # Segmented Neutrophils Band Neutrophils Lymphocytes Monocytes Nucleated RBCs # Platelet Estimate Hypochromasia Ovalocytes [place] Cells Morphology Comment Sodium Potassium Chloride Carbon Dioxide Anion Gap BUN Creatinine GFR Calculation BUN/Creatinine Ratio Glucose POC Glucose 223 H Hemoglobin A1c 6.6 H Calculated Osmolality Lactic Acid Calcium Phosphorus Magnesium Total Bilirubin AST ALT Alkaline Phosphatase Troponin I Total Protein Albumin Globulin Albumin/Globulin Ratio Triglycerides Cholesterol LDL Cholesterol VLDL Cholesterol HDL Cholesterol Heart Disease Risk Ratio Free T4 TSH 3rd Generation - Diagnostic Findings Procedure: Chest x-ray: report reviewed by me, CT - chest: report reviewed by me - EKG EKG results: interpreted by me EKG shows: atrial fibrillation (RVR) Annia Chowdary Thomas, MD, personally performed the services described in this documentation, ascribed by Jennifer Harrison RN in my presence, and it is both accurate and complete .
[2017-02-26] MEDS: cefTRIAXone 1,000 MG in SODIUM CHLORIDE 0.9% 100 ML IV SCH (14:39)
[2017-02-26] MEDS: SOTALOL 80 MG TABLET PO SCH ×2 (14:42→21:20)
[2017-02-26] MEDS: AZITHROMYCIN INJ 500 MG in SODIUM CHLORIDE 0.9% 250 ML IV SCH (16:08)
[2017-02-26] MEDS ORDERED: traMADol 50 MG TABLET PO PRN (16:10)
[2017-02-26] MEDS ORDERED: KETOROLAC 15 MG/1 ML VIAL IV PRN (16:10)
[2017-02-26] MEDS ORDERED: HYDROmorphone 2 MG/1 ML VIAL IV PRN (16:11)
--- NOTE | 2017-02-26 16:48 | XRay Report ---
XR KUB Indication: Constipation. Abdominal pain. Comparison: None. Technique: Supine AP image of the abdomen was obtained. Findings: Lung bases are clear. There is no evidence of organomegaly. Bowel gas pattern is unremarkable. Renal contours are bilaterally symmetric. Bones and soft tissues demonstrate no significant abnormalities. Impression: 1. No active process is demonstrated within the abdomen or pelvis. 02/26/2017 4:45 PM PROCEDURE INTERPRETED AT [facility] DEPARTMENT OF RADIOLOGY Final Report Signed by: Dr. Bud Swan
[2017-02-27] MEDS: ALBUTEROL/IPRATROPIUM 3 ML NEB RESP TX SCH ×4 (00:25→19:31)
[2017-02-27 05:20] LABS: Basophils % 0.2 % (0.0-0.8); Eosinophils # 0.1 10*3/uL (0.0-0.87); Eosinophils % 0.5 % (0.00-10.9); Hematocrit 32.5 VOL% (42.0-52.0); Hemoglobin 11.1 GM/DL (14.0-18.0); Immature Granulocytes % 0.8 %; Immature Granulocytes Absolute 0.11 #; Lymphocytes # 1.5 10*3/uL (1.4-4.0); Mean Corpuscular HGB Conc 34.2 GM/DL (32-36); Mean Corpuscular Hemoglobin 28 PG (27-34); Mean Corpuscular Volume 82.7 FL (87-102); Mean Platelet Volume 10.4 FL (9.6-12.0); Monocytes # 1.2 10*3/uL (0.11-0.8); Monocytes % 8.2 % (1.7-12.7); Neutrophils # 11.6 10*3/uL (1.4-7.4); Neutrophils % 80.3 % (38.7-73.9); Platelet Count 236 T/CUMM (130-400); Red Blood Count 3.93 MC/CUMM (3.8-5.5); White Blood Count 14.5 T/CUMM (4-12)
[2017-02-27 05:42] LABS: Hypochromasia 1+; Ovalocytes Slight; Platelet Estimate Adequate
[2017-02-27 05:53] LABS: Albumin 2.4 G/DL (3.4-5.0); Bilirubin,Total 0.8 MG/DL (0.2-1.0); Calcium 7.9 MG/DL (8.5-10.1); Magnesium 2.3 MG/DL (1.8-2.4); Phosphorous 2.3 MG/DL (2.5-4.9); Total Protein 5.8 G/DL (6.4-8.3)
[2017-02-27 05:54] LABS: Potassium 4.1 MMOL/L (3.5-5.1)
--- NOTE | 2017-02-27 08:11 | Physician Query Form ---
CLICK EDIT DOCUMENT TO SELECT QUERY ANSWER --> OK --> SIGN Domenica Swan RN, CCDS Certified Clinical Cuffer W) [phone] (f) [phone] [email or web address] PROVIDERS: Make your selection(s) from the choices in EACH section by typing an "x" and enter comments in the comment section. Please use your independent medical judgment in providing your response. This request does not imply that any particular answer is desired or expected. CLINICAL INDICATORS: (Providers should not edit this section) The below diagnosis was documented in the record, but is not consistently noted in subsequent documentation. The medical record indicates that the patient was admitted with pneumonia, WBC of 24.9, Lactic Acid of 1.5, Normal Temp in the ER, Respirations of 17, Heart Rate of 92 (patient was later found to be in AF with RV), Sepsis is mentioned. As the attending MD can you please clarify if the Sepsis was ? Diagnosis: Sepsis Please clarify the following: (X ) The above diagnosis was monitored, evaluated, and/or treated and is a confirmed diagnosis ( ) The above diagnosis was ruled out ( ) The above diagnosis is still a likely, suspected, probable diagnosis ( ) Other, please specify: ( ) Clinically unable to determine COMMENTS: PLEASE ALSO DOCUMENT RESPONSE IN PROGRESS NOTES AND/OR DISCHARGE SUMMARY Use of terms such as suspected, likely, or probable (associated with a specific diagnosis that is being evaluated, monitored, or treated as if it exists) are acceptable and can be restated in the discharge summary if not ruled out. MTDD
--- NOTE | 2017-02-27 09:28 | Pulmonology Progress Note ---
Pulmonary - PN: Subj Interval history: The patient is a 56-year-old black man has been very healthy. He came in with a couple days of fever cough and congestion and has a right lower lobe pneumonia. He developed atrial fibrillation and is being monitored on telemetry. He had trouble voiding and required in and out catheterization yesterday. Today he says he is feeling much better. He is voiding better but still not had a bowel movement. His sputum is clearing and his cough is better. He is having less shortness of breath. He is still having atrial fibrillation but overall feels better. Exam (Progress Note) - Constitutional Vitals: Period Temp Pulse Resp BP Sys/[place] Pulse Ox Last 24 Hr 96.1 F-100.9 F 94-128 16-20 101-131/59-76 89-99 Exam: General appearance: normal weight, no distress, his breathing is much better today and he looks more comfortable. - Head Head exam: Present: normal inspection, normocephalic - Eye Eye exam: Present: EOMI. Absent: scleral icterus - ENT ENT exam: Present: normal exam - Neck Neck exam: Absent: lymphadenopathy, thyromegaly - Respiratory Respiratory exam: Present: He has some crackles in the right base but is moving air fairly well without wheezing. - Cardiovascular Cardiovascular exam: Present: His heart rate is irregular now but controlled. - GI/Abdominal GI/Abdominal exam: Present: His abdomen is a little distended but is soft and nontender. - Extremities Exam Extremities exam: Absent: calf tenderness, edema, he has no signs of phlebitis. - Neurological Exam Neurological exam: Present: alert, oriented X3, CN II-XII intact. Absent: motor sensory deficit - Psychiatric Psychiatric exam: Present: normal affect - Skin Skin exam: Present: warm, dry Results - Labs CBC & BMP: 02/27/17 04:32 02/27/17 04:32 Assessment and Plan (1) Sepsis Status: Acute Assessment and plan: The patient is much better and his hemodynamics are little more stable. Current Visit: Yes (2) Right lower lobe pneumonia Status: Acute Assessment and plan: Patient has an acute onset of right lower lobe pneumonia with blood-tinged sputum. This certainly looks like pneumococcal pneumonia or some type of bacterial pneumonia. So far the cultures are negative. His breathing is better and his sputum is clearing. Will check a chest x-ray tomorrow. Current Visit: Yes (3) Atrial fibrillation Status: Acute Assessment and plan: He is in atrial fibrillation now and is going to be monitored. He has been started on Lovenox. His heart rate is under good control. Current Visit: Yes
[2017-02-27] MEDS: SOTALOL 80 MG TABLET PO SCH ×2 (09:41→21:50)
[2017-02-27] MEDS: POLYETHYLENE GLYCOL POWDER 17 GM PACK PO SCH (09:42)
[2017-02-27] MEDS: PANTOPRAZOLE 40 MG TABLET PO SCH (09:42)
[2017-02-27] MEDS: DOCUSATE SODIUM 100 MG CAPSULE PO SCH ×2 (09:42→21:50)
[2017-02-27] MEDS: AZITHROMYCIN 250 MG TABLET PO SCH (09:49)
--- NOTE | 2017-02-27 11:07 | Hospitalist Progress Note ---
Assessment and Plan - Time spent with patient Time spent with patient: Less than 30 minutes (1) Right lower lobe pneumonia Status: Acute Assessment and plan: 02/27/17 -No temp noted (98.9). WBC improving down to 14.5 from 14.9. Hemodynamically stable. Sputum culture: normal barrett at 48 hours. Blood culture final pending. Pulmonary is following and greatly appreciate recommendations with care. Repeat chest xray ordered. Will continue antibiotic therapy. repeat labs in a.m. Current Visit: Yes (2) Atrial fibrillation Status: Acute Assessment and plan: Atrial fib with controlled rate (95-100). Will continue to monitor. Current Visit: Yes (3) Urinary retention Status: Acute Assessment and plan: 02/27/17 - No episodes throughout the night, verbalized no urinating problems this morning. Current Visit: Yes Hospitalist: Subjective Interval history: 02/27/17 _ Mr Garibay verbalized feeling much better this a.m. Patient examined and chart reviewed. He developed urinary retention yesterday and had to be in and out cath'd for relief. No new events were reported by patient or family. He states he has been doing better and no problems with urinating this morning. No tenderness to abdomen or pelvic/bladder area. Bowel sounds positive. No lower extremity edema noted. No wheezing noted, crackles noted. Denies shortness of breath, denies chest pain. Exam - Constitutional Vitals: Period Temp Pulse Resp BP Sys/[place] Pulse Ox Last 24 Hr 96.1 F-100.9 F 94-128 16-20 101-131/59-76 89-99 General appearance: normal weight - Head Head exam: Present: normal inspection - Eye Eye exam: Present: EOMI Pupils: Present: JERRY - Neck Neck exam: Present: normal inspection. Absent: thyromegaly - Respiratory Respiratory exam: Present: rhonchi. Absent: wheezes - Cardiovascular Cardiovascular exam: Present: irregular rhythm (HR 95 - 100) - GI/Abdominal GI/Abdominal exam: Present: normal bowel sounds, soft. Absent: guarding, tenderness, rebound - Extremities Exam Extremities exam: Present: full ROM. Absent: edema - Neurological Exam Neurological exam: Present: alert, oriented X3, CN II-XII intact - Psychiatric Psychiatric exam: Present: normal affect, other (conversational rational) - Skin Skin exam: Present: normal color, warm, dry, other (reports feeling chilled this morning, Temp 98.9 ) Results - Labs CBC & BMP: 02/27/17 04:32 02/27/17 04:32 Lab Results: I have reviewed the past 24 hour labs
--- NOTE | 2017-02-27 11:54 | Cardiology Progress Note ---
Christy Chowdary April RN, am scribing for, and in the presence of, Francesco Milner MD 11:54. 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 He denies ever having had a heart catheterization or stress test done. He denies any known heart disease or heart rhythm problems. Medical history is positive for GERD. Surgical history includes right wrist. He reports he is a lifetime non-smoker. He lives at home with his . Mr. Garibay was admitted February 25, 2017 with complaints of right flank pain and hemoptysis. CT suggested right lower lobe pneumonia and he was started on antibiotic coverage and inhaled bronchodilators. This morning around 5 AM. Developed chest tightness in the center of his chest that came on at rest. He said that it felt like indigestion. He rated a 7 on a scale of 1-10. He also had nausea and vomiting associated with this pain. He denies having had any palpitations or dizziness. He says he has been short of breath since admission and the shortness of breath was no worse with this chest pain. The pain is reproducible to palpation. An EKG was done showing atrial fibrillation with rapid ventricular response, heart rate of 117. He says he was given a shot for his pain and it was relieved. He was given Lopressor 5 mg IV 1 days and started on Lovenox injections and Lopressor 12.5 mg p.o. daily. Echocardiogram with ejection fraction of 60%. February 27, 2017: Mr. Garibay is seen resting in bed in no acute distress. He reports he feels much better today and does indeed look better. He denies any further chest pain. Oxygen is in use via nasal cannula. He states he continues to be short of breath, but that it has improved. He had difficulty urinating yesterday and required in and out cath. He denies any further difficulty with urination. Lopressor was changed to sotalol 80 mg p.o. twice daily yesterday. 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 He states he has not had a bowel movement, but KUB done yesterday indicated no active process within the abdomen or pelvis. Lab data today: White count 14.5 hemoglobin 11.1 hematocrit 32.5 Sodium 136 potassium 4.1 chloride 102 CO2 25 BUN 20 creatinine 1.3 Glucose 110 Magnesium 2.3 Impression: Right lower lobe pneumonia New onset atrial fibrillation Newly diagnosed diabetic GE reflux on [facility] Cardiology addendum. Patient examined chart reviewed . Patient has converted chemically with sotalol. Echo shows ejection fraction of 60% with mildly dilated left atrium, aortic valve sclerosis, normal RV function, mild TR PA pressure 40 with no effusion. Blood pressure 134/78 Plan IV antibiotics and nebs Sotalol 80 mg twice daily Exam (Progress Note) - Constitutional Vitals: Period Temp Pulse Resp BP Sys/[place] Pulse Ox Last 24 Hr 96.1 F-100.9 F 94-128 16-20 101-131/59-76 89-99 Exam: General: Present: Appears Well, No Apparent Distress, Other (Pleasant and cooperative) Neck: Present: Supple Neck, Midline Trachea, No Bruit Cardiac: Present: Irregularly Regular, Tachycardia Lungs: Present: Decreased Breath Sounds, Scattered Rhonchi, Oxygen (Via nasal cannula), No Wheezes Neuro: Absent: Resting Tremor, Essential Tremor Abdomen: Present: Active Bowel Sounds, non-tender, Firm, not distended Skin: Absent: Rash, Suspicious Lesions Extremities: Present: Normal Gait, No Edema, Normal Upper Extr. Pulses, Normal Lower Extr. Pulses Result/EKG - Labs CBC & BMP: 02/27/17 04:32 02/27/17 04:32 Lab Results: I have reviewed the past 24 hour labs Labs: Laboratory Results - last 24 hr 02/27/17 02/27/17 04:32 04:32 WBC 14.5 H RBC 3.93 Hgb 11.1 L Hct 32.5 L MCV 82.7 L MCH 28 MCHC 34.2 RDW 14.0 Plt Count 236 MPV 10.4 Neut % (Auto) 80.3 H Lymph % (Auto) 10.0 L [place] % (Auto) 8.2 Eos % (Auto) 0.5 Baso % (Auto) 0.2 Neut # (Auto) 11.6 H Lymph # (Auto) 1.5 [place] # (Auto) 1.2 H Eos # (Auto) 0.1 Baso # (Auto) 0.0 Immature Gran % 0.8 Nucleated RBC % 0.0 Immature Gran # 0.11 Nucleated RBCs # 0.00 Platelet Estimate Adequate Hypochromasia 1+ Ovalocytes Slight Morphology Comment Sodium 136 Potassium 4.1 Chloride 102 Carbon Dioxide 25 Anion Gap 13.1 BUN 20 H Creatinine 1.30 GFR Calculation 85 BUN/Creatinine Ratio 15.00 Glucose 110 H Calculated Osmolality 275.0 Calcium 7.9 L Phosphorus 2.3 L Magnesium 2.3 Total Bilirubin 0.80 AST 16 ALT 12 L Alkaline Phosphatase 58 Total Protein 5.8 L Albumin 2.4 L Globulin 3.4 Albumin/Globulin Ratio 0.7 L Annia Chowdary Thomas, MD, personally performed the services described in this documentation, ascribed by Jeninfer Harrison RN in my presence, and it is both accurate and complete .
[2017-02-27] MEDS: cefTRIAXone 1,000 MG in SODIUM CHLORIDE 0.9% 100 ML IV SCH (13:46)
[2017-02-28] MEDS: ALBUTEROL/IPRATROPIUM 3 ML NEB RESP TX SCH ×4 (01:10→20:03)
[2017-02-28 05:43] LABS: Basophils # 0.1 10*3/uL (0.0-0.2); Basophils % 0.4 % (0.0-0.8); Eosinophils # 0.1 10*3/uL (0.0-0.87); Eosinophils % 0.8 % (0.00-10.9); Hematocrit 35.7 VOL% (42.0-52.0); Hemoglobin 12.1 GM/DL (14.0-18.0); Immature Granulocytes % 1.5 %; Immature Granulocytes Absolute 0.22 #; Lymphocytes # 1.6 10*3/uL (1.4-4.0); Lymphocytes % 10.8 % (21.2-54.2); Mean Corpuscular HGB Conc 33.9 GM/DL (32-36); Mean Corpuscular Hemoglobin 28 PG (27-34); Mean Corpuscular Volume 82.4 FL (87-102); Mean Platelet Volume 9.9 FL (9.6-12.0); Monocytes # 1.6 10*3/uL (0.11-0.8); Monocytes % 11.1 % (1.7-12.7); Neutrophils # 11.1 10*3/uL (1.4-7.4); Neutrophils % 75.4 % (38.7-73.9); Platelet Count 283 T/CUMM (130-400); Red Blood Count 4.33 MC/CUMM (3.8-5.5); White Blood Count 14.7 T/CUMM (4-12)
[2017-02-28 06:12] LABS: Calcium 8.5 MG/DL (8.5-10.1); Magnesium 2.4 MG/DL (1.8-2.4); Osmolality,Calculated 281.4 MOS/KG (273-304); Potassium 4.1 MMOL/L (3.5-5.1)
--- NOTE | 2017-02-28 07:27 | XRay Report ---
Exam: XR chest 1V portable Date: 02/28/2017 4:00 AM Indication: Pneumonia Comparison: 02/26/2017 Technical: AP portable Findings: Cardiomegaly is present. Low volume effusion and atelectatic change infiltrate present in the right base with minimal atelectatic change and tiny effusion left base. No pneumothorax present. External cardiac leads are present. Mediastinum is intact. Impression: 1. Persistent right basilar atelectatic change infiltrate and effusion with low volume effusion. 2. Question tiny effusion left base 3. Mild cardiac enlargement PROCEDURE INTERPRETED AT [facility] DEPARTMENT OF RADIOLOGY Final Report Signed by: Dr. Albino No
--- NOTE | 2017-02-28 07:31 | EKG Report ---
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
[2017-02-28] MEDS: AZITHROMYCIN 250 MG TABLET PO SCH (09:03)
[2017-02-28] MEDS: POLYETHYLENE GLYCOL POWDER 17 GM PACK PO SCH (09:03)
[2017-02-28] MEDS: DOCUSATE SODIUM 100 MG CAPSULE PO SCH ×2 (09:03→22:18)
[2017-02-28] MEDS: SOTALOL 80 MG TABLET PO SCH ×2 (09:03→22:18)
[2017-02-28] MEDS: PANTOPRAZOLE 40 MG TABLET PO SCH (09:03)
--- NOTE | 2017-02-28 09:18 | Pulmonology Progress Note ---
Pulmonary - PN: Subj Interval history: The patient is a 56-year-old black man has been very healthy. He came in with a couple days of fever cough and congestion and has a right lower lobe pneumonia. He developed atrial fibrillation and is being monitored on telemetry. He had trouble voiding and required in and out catheterization yesterday. He had a fairly good night last night and is feeling better. He still coughs up a little bit of blood-tinged sputum. He is not having any fever now and is not short of breath off of oxygen. He is back in a sinus rhythm now. He still has not had a bowel movement but he is voiding better. Overall he is feeling better. His chest x-ray still shows mild bibasilar infiltrates. Exam (Progress Note) - Constitutional Vitals: Period Temp Pulse Resp BP Sys/[place] Pulse Ox Last 24 Hr 97.8 F-100.5 F 82-102 18-20 111-140/59-82 93-100 Exam: General appearance: normal weight, no distress, his breathing is much better today and he looks more comfortable. - Head Head exam: Present: normal inspection, normocephalic - Eye Eye exam: Present: EOMI. Absent: scleral icterus - ENT ENT exam: Present: normal exam - Neck Neck exam: Absent: lymphadenopathy, thyromegaly - Respiratory Respiratory exam: Present: He has some crackles in the right base but is moving air fairly well without wheezing. He is breathing much better now. - Cardiovascular Cardiovascular exam: Present: His heart rate is a regular rhythm now. - GI/Abdominal GI/Abdominal exam: Present: His abdomen is a little distended but is soft and nontender. - Extremities Exam Extremities exam: Absent: calf tenderness, edema, he has no signs of phlebitis. - Neurological Exam Neurological exam: Present: alert, oriented X3, CN II-XII intact. Absent: motor sensory deficit - Psychiatric Psychiatric exam: Present: normal affect - Skin Skin exam: Present: warm, dry Results - Labs CBC & BMP: 02/28/17 05:22 02/28/17 05:22 - Diagnostic Findings Procedure: Chest x-ray: image reviewed by me, report reviewed by me (Chest x- ray shows mild infiltrates in the bases.) Assessment and Plan (1) Sepsis Status: Acute Assessment and plan: The patient is much better and his vital signs are stable and he is walking around and comfortable. Current Visit: Yes (2) Right lower lobe pneumonia Status: Acute Assessment and plan: Patient has an acute onset of right lower lobe pneumonia with blood-tinged sputum. This certainly looks like pneumococcal pneumonia or some type of bacterial pneumonia. So far the cultures are negative. His breathing is better and his sputum is clearing. His chest x-ray is stable. He can probably go home soon on oral antibiotics. Current Visit: Yes (3) Atrial fibrillation Status: Acute Assessment and plan: He is back in a regular rhythm now. Current Visit: Yes
[2017-02-28] MEDS ORDERED: MAGNESIUM HYDROXIDE SUSP 30 ML UDCUP PO ONE (10:14)
[2017-02-28] MEDS ORDERED: SODIUM PHOSPHATE ENEMA 133 ML BOTTLE RECTAL ONE (10:14)
[2017-02-28] MEDS ORDERED: BISACODYL 5 MG TABLET PO ONE (10:14)
--- NOTE | 2017-02-28 10:36 | Cardiology Progress Note ---
Assessment and Plan (1) Atrial fibrillation with rapid ventricular response Status: Acute Current Visit: Yes (2) GERD (gastroesophageal reflux disease) Status: Chronic Current Visit: Yes (3) Hemoptysis Status: Acute Current Visit: Yes (4) Right lower lobe pneumonia Status: Acute Current Visit: Yes Cardiology - PN: Subj Interval history: Cardiology note No temperature Coughing less Urinary retention yesterday requiring in and out cath but has voided today twice without problem Telemetry shows steady sinus rhythm no further atrial fib Regular rhythm no murmur or gallop Decreased breath sounds with bibasilar crackles Abdomen benign No leg edema Impression Right lower lobe pneumonia GE reflux Urinary retention New onset atrial fibrillation converted with sotalol- Hemoptysis Plan IV antibiotics and nebs Sotalol 80 mg twice daily Exam (Progress Note) - Constitutional Vitals: Period Temp Pulse Resp BP Sys/[place] Pulse Ox Last 24 Hr 97.8 F-100.5 F 73-102 16-20 111-140/59-82 91-100 Result/EKG - Labs CBC & BMP: 02/28/17 05:22 02/28/17 05:22 Labs: Laboratory Results - last 24 hr 02/25/17 02/28/17 02/28/17 13:01 05:22 05:22 WBC 14.7 H RBC 4.33 Hgb 12.1 L Hct 35.7 L MCV 82.4 L MCH 28 MCHC 33.9 RDW 14.0 Plt Count 283 MPV 9.9 Neut % (Auto) 75.4 H Lymph % (Auto) 10.8 L [place] % (Auto) 11.1 Eos % (Auto) 0.8 Baso % (Auto) 0.4 Neut # (Auto) 11.1 H Lymph # (Auto) 1.6 [place] # (Auto) 1.6 H Eos # (Auto) 0.1 Baso # (Auto) 0.1 Immature Gran % 1.5 Nucleated RBC % 0.0 Immature Gran # 0.22 Nucleated RBCs # 0.00 Immature Plt Fraction 0.0 Sodium 140 Potassium 4.1 Chloride 104 Carbon Dioxide 28 Anion Gap 12.1 BUN 15 Creatinine 1.20 GFR Calculation 93 BUN/Creatinine Ratio 12.00 Glucose 126 H Calculated Osmolality 281.4 Calcium 8.5 Magnesium 2.4 Procalcitonin 4.5 H
[2017-02-28] MEDS: cefTRIAXone 1,000 MG in SODIUM CHLORIDE 0.9% 100 ML IV SCH (13:40)
--- NOTE | 2017-02-28 14:18 | Hospitalist Progress Note ---
Assessment and Plan (1) Sepsis Status: Acute Assessment and plan: At the time of ED presentation the patient was noted to be tachycardic with a heart rate of 92, white blood cell count was noted at 24.9, and CT chest reported right lower lobe pneumonia. The patient meets the sepsis criteria. Lactic acid was obtained and was noted at 1.5. We will start empiric antibiotic coverage after blood cultures have been obtained. We will gently rehydrate and reassess in a.m. Current Visit: Yes (2) Right lower lobe pneumonia Status: Acute Assessment and plan: CT chest suggested right lower lobe pneumonia. We will start empiric antibiotic coverage, inhaled bronchodilators, PPI's, placed sequential compression devices. In addition due to the hemoptysis, we will consult pulmonary to evaluate and assist during the clinical encounter. 02/28-check x-ray significant for bilateral bibasilar infiltrates; we will continue empiric antibiotic coverage as previously indicated. Will reassess for possible appropriateness for discharge in a.m. Current Visit: Yes (3) Atrial fibrillation Status: Acute Assessment and plan: No further episodes of atrial fibrillation noted. Patient rate is controlled. We will monitor closely. Current Visit: Yes Hospitalist: Subjective Interval history: Patient seen and examined; no significant overnight events reported per staff. Antibiotic coverage remain in progress, noted improvement in chest x-ray however by basilar infiltrations remain. Possible discharge in a.m. Exam - Constitutional Vitals: Period Temp Pulse Resp BP Sys/[place] Pulse Ox Last 24 Hr 97.8 F-100.5 F 73-102 16-20 123-140/67-84 91-100 General appearance: normal weight, no acute distress - Head Head exam: Present: normal inspection, normocephalic, atraumatic - Eye Eye exam: Present: EOMI. Absent: conjunctival injection Pupils: Present: JERRY, normal accommodation - ENT ENT exam: Present: normal exam, normal external ear exam, normal oropharynx - Neck Neck exam: Present: normal inspection. Absent: lymphadenopathy, meningismus, thyromegaly - Respiratory Respiratory exam: Present: decreased breath sounds, other (Crackles are noted at the right base) - Cardiovascular Cardiovascular exam: Present: regular rate and rhythm, tachycardia. Absent: carotid bruit, diastolic murmur, JVD, rubs, systolic murmur - GI/Abdominal GI/Abdominal exam: Present: normal bowel sounds, soft. Absent: firm, guarding - Extremities Exam Extremities exam: Present: normal inspection, normal capillary refill, full ROM. Absent: edema - Back Exam Back exam: Present: normal inspection - Neurological Exam Neurological exam: Present: alert, oriented X3, CN II-XII intact - Psychiatric Psychiatric exam: Present: normal affect, normal mood - Skin Skin exam: Present: normal color, warm, dry Results - Labs CBC & BMP: 02/28/17 05:22 02/28/17 05:22 Lab Results: I have reviewed the past 24 hour labs
[2017-03-01] MEDS: ALBUTEROL/IPRATROPIUM 3 ML NEB RESP TX SCH ×2 (00:56→08:23)
--- NOTE | 2017-03-01 04:29 | Cardiology Progress Note ---
Assessment and Plan (1) Atrial fibrillation with rapid ventricular response Status: Acute Current Visit: Yes (2) GERD (gastroesophageal reflux disease) Status: Chronic Current Visit: Yes (3) Hemoptysis Status: Acute Current Visit: Yes (4) Right lower lobe pneumonia Status: Acute Current Visit: Yes Cardiology - PN: Subj Interval history: Cardiology note 56-year-old man with right lower lobe pneumonia and new onset atrial fibrillation. Patient converted to sinus with sotalol. No temperature. Appetite good. Less cough. Telemetry shows steady sinus rhythm in the 60s and 70s Regular rhythm no murmur or gallop Decreased breath sounds with bibasilar rhonchi Abdomen benign No leg edema Impression Right lower lobe pneumonia GE reflux Urinary retention resolved New onset atrial fibrillation converted with sotalol Plan Pulmonary toilet IV antibiotics and nebs Sotalol 80 mg twice daily Exam (Progress Note) - Constitutional Vitals: Period Temp Pulse Resp BP Sys/[place] Pulse Ox Last 24 Hr 97.8 F-99.1 F 71-92 16-20 125-156/80-86 91-99 Result/EKG - Labs CBC & BMP: 02/28/17 05:22 02/28/17 05:22 Labs: Laboratory Results - last 24 hr 02/25/17 02/26/17 02/28/17 13:01 06:03 05:22 WBC 14.7 H RBC 4.33 Hgb 12.1 L Hct 35.7 L MCV 82.4 L MCH 28 MCHC 33.9 RDW 14.0 Plt Count 283 MPV 9.9 Neut % (Auto) 75.4 H Lymph % (Auto) 10.8 L [place] % (Auto) 11.1 Eos % (Auto) 0.8 Baso % (Auto) 0.4 Neut # (Auto) 11.1 H Lymph # (Auto) 1.6 [place] # (Auto) 1.6 H Eos # (Auto) 0.1 Baso # (Auto) 0.1 Immature Gran % 1.5 Nucleated RBC % 0.0 Immature Gran # 0.22 Nucleated RBCs # 0.00 Immature Plt Fraction 0.0 Sodium Potassium Chloride Carbon Dioxide Anion Gap BUN Creatinine GFR Calculation BUN/Creatinine Ratio Glucose Calculated Osmolality Calcium Magnesium Free T3 pg/mL 2.8 Ur L.pneumophila Ag Cancelled Ur Strep pneumoniae Ag Cancelled 02/28/17 05:22 WBC RBC Hgb Hct MCV MCH MCHC RDW Plt Count MPV Neut % (Auto) Lymph % (Auto) [place] % (Auto) Eos % (Auto) Baso % (Auto) Neut # (Auto) Lymph # (Auto) [place] # (Auto) Eos # (Auto) Baso # (Auto) Immature Gran % Nucleated RBC % Immature Gran # Nucleated RBCs # Immature Plt Fraction Sodium 140 Potassium 4.1 Chloride 104 Carbon Dioxide 28 Anion Gap 12.1 BUN 15 Creatinine 1.20 GFR Calculation 93 BUN/Creatinine Ratio 12.00 Glucose 126 H Calculated Osmolality 281.4 Calcium 8.5 Magnesium 2.4 Free T3 pg/mL Ur L.pneumophila Ag Ur Strep pneumoniae Ag
[2017-03-01 06:07] LABS: Basophils # 0.1 10*3/uL (0.0-0.2); Basophils % 0.3 % (0.0-0.8); Eosinophils # 0.2 10*3/uL (0.0-0.87); Eosinophils % 1.4 % (0.00-10.9); Hematocrit 37.2 VOL% (42.0-52.0); Hemoglobin 12.7 GM/DL (14.0-18.0); Immature Granulocytes % 4.1 %; Lymphocytes # 1.7 10*3/uL (1.4-4.0); Lymphocytes % 11.7 % (21.2-54.2); Mean Corpuscular HGB Conc 34.1 GM/DL (32-36); Mean Corpuscular Hemoglobin 28 PG (27-34); Mean Corpuscular Volume 82.1 FL (87-102); Mean Platelet Volume 10.2 FL (9.6-12.0); Monocytes # 2.3 10*3/uL (0.11-0.8); NRBC # 0.05 10*3/uL; Neutrophils # 9.7 10*3/uL (1.4-7.4); Neutrophils % 66.5 % (38.7-73.9); Platelet Count 302 T/CUMM (130-400); Red Blood Count 4.53 MC/CUMM (3.8-5.5); Red Cell Distribution Width 14.1 % (9.3-17.3); White Blood Count 14.6 T/CUMM (4-12)
[2017-03-01 06:34] LABS: Calcium 8.6 MG/DL (8.5-10.1); Magnesium 2.3 MG/DL (1.8-2.4); Osmolality,Calculated 276.7 MOS/KG (273-304); Potassium 4.5 MMOL/L (3.5-5.1)
[2017-03-01 06:56] LABS: Band Neutrophils 4 % (0-10); Hypochromasia Slight; Lymphocytes 9 % (20-55); Ovalocytes Slight; Platelet Estimate Adequate; Segmented Neutrophils 68 % (50-85); Total Cells Counted 100
[2017-03-01 08:13] VITALS: BP 135/72
[2017-03-01] MEDS: AZITHROMYCIN 250 MG TABLET PO SCH (08:38)
[2017-03-01] MEDS: SOTALOL 80 MG TABLET PO SCH (08:38)
[2017-03-01] MEDS: POLYETHYLENE GLYCOL POWDER 17 GM PACK PO SCH (08:39)
[2017-03-01] MEDS: DOCUSATE SODIUM 100 MG CAPSULE PO SCH (08:39)
[2017-03-01] MEDS: PANTOPRAZOLE 40 MG TABLET PO SCH (08:39)
[2017-03-01] MEDS ORDERED: cefTRIAXone 2,000 MG in SODIUM CHLORIDE 0.9% 100 ML IV SCH (09:00)
--- NOTE | 2017-03-01 09:05 | Hospitalist Progress Note ---
Assessment and Plan - Time spent with patient Time spent with patient: Less than 30 minutes (1) Sepsis Status: Acute Current Visit: Yes (2) Right lower lobe pneumonia Status: Acute Current Visit: Yes (3) Atrial fibrillation Status: Acute Current Visit: Yes Hospitalist: Subjective Interval history: Chart reviewed and patient examined. Exam - Constitutional Vitals: Period Temp Pulse Resp BP Sys/[place] Pulse Ox Last 24 Hr 98.1 F-99.1 F 71-89 17-20 129-156/68-86 93-99 Results - Labs CBC & BMP: 03/01/17 04:49 03/01/17 04:49 Lab Results: I have reviewed the past 24 hour labs
--- NOTE | 2017-03-01 09:47 | Discharge Summary ---
Hospital Course - Hospital Course Hospital Course: Mr. Garibay is a 56-year-old male who initially presented to the emergency department for evaluation of right-sided pain and hemoptysis. He was noted to have a right lower lobe infiltrate consistent with community-acquired pneumonia and he also met criteria for sepsis. He underwent sepsis protocol, was cultured , received IV fluids, and IV antibiotic therapy was begun empirically. Lactic acid was noted to be 1.5 at that time. He was seen by pulmonary during his stay as well. He improved symptomatically and is now afebrile and oxygenating well on room air at 98%. Blood culture and sputum cultures were negative. He did develop some urinary retention initially which is now resolved as well. He also had atrial fibrillation with rapid ventricular response and has been evaluated and treated by cardiology. Echocardiogram revealed left ventricular ejection fraction estimated at 60%. He is now converted to normal sinus rhythm and is being maintained on sotalol. It was felt that he would not require any chronic anti-coagulation at this time. It is felt at this time he has reached maximal benefit from hospital stay can be discharged home with outpatient follow -up. Time spent on discussion with patient and family and coordinating care, preparing prescriptions and discharge summary were approximately 40 minutes. - Time spent with patient Time with patient DS: Greater than 30 minutes Diagnosis - Discharge Diagnosis (1) Sepsis Status: Acute (2) Right lower lobe pneumonia Status: Acute (3) Atrial fibrillation Status: Acute Discharge Plan - Discharge Data Disposition: Disch To Home/Self Care Condition at Discharge: Stable Discharge Diet: advance to your usual diet Activity: resume usual activities as tolerated Hygiene: no restrictions Weight Bearing at Discharge: full weight bearing Contact your physician if you experience:: fever over 101, Shortness of breath - Discharge Medications New Cefuroxime Tab [Ceftin] 500 mg PO BID #14 tablet Sotalol [Betapace] 80 mg PO BID #60 tablet Continue Omeprazole [Prilosec] 20 mg PO DAILY guaiFENesin [Mucinex] 600 mg PO DAILY Discontinued Levofloxacin Tab [Levaquin Tab] 500 mg PO DAILY #10 tablet - Follow Up or Referral Follow Up: [place], [facility] [Other] - 5 Days Francesco Milner MD [Physician] - 2 Weeks (with EKG) - Forms/Instructions Additional Discharge Instructions: Follow-up with Dr. Milner in the clinic in 2 weeks with EKG Exam - Constitutional Vitals: Period Temp Pulse Resp BP Sys/[place] Pulse Ox Last 24 Hr 98.1 F-99.1 F 71-89 17-20 129-156/68-86 93-99 General appearance: no acute distress - Head Head exam: Present: normocephalic, atraumatic - Eye Eye exam: Present: EOMI Pupils: Present: JERRY - ENT ENT exam: Present: normal exam - Neck Neck exam: Present: normal inspection - Respiratory Respiratory exam: Present: clear to auscultation bilaterally - Cardiovascular Cardiovascular exam: Present: regular rate and rhythm. Absent: systolic murmur , tachycardia - GI/Abdominal GI/Abdominal exam: Present: normal bowel sounds, soft. Absent: mass, tenderness , rebound - Extremities Exam Extremities exam: Absent: calf tenderness, edema - Back Exam Back exam: Present: normal inspection - Neurological Exam Neurological exam: Present: alert, oriented X3, CN II-XII intact. Absent: motor sensory deficit - Psychiatric Psychiatric exam: Present: normal affect, normal mood. Absent: agitated, anxious - Skin Skin exam: Present: warm, dry. Absent: erythema Discharge Results Procedures and tests throughout hospitalization: Pending Orders 02/25/17 13:01 Blood Culture Stat 02/28/17 12:26 Streptococcus pneumoniae Ag, U Routine 02/28/17 13:57 Legionella Ag, Urine Routine 03/02/17 04:00 Basic Metabolic Panel w/Mg IN AM Comp Blood Count Auto Diff IN AM Labs on day of discharge: Labs from last 24 hours 03/01/17 03/01/17 02/26/17 04:49 04:49 06:03 WBC 14.6 H RBC 4.53 Hgb 12.7 L Hct 37.2 L MCV 82.1 L MCH 28 MCHC 34.1 RDW 14.1 Plt Count 302 MPV 10.2 Neut % (Auto) 66.5 Lymph % (Auto) 11.7 L [place] % (Auto) 16.0 H Eos % (Auto) 1.4 Baso % (Auto) 0.3 Neut # (Auto) 9.7 H Lymph # (Auto) 1.7 [place] # (Auto) 2.3 H Eos # (Auto) 0.2 Baso # (Auto) 0.1 Total Counted 100 Immature Gran % 4.1 Nucleated RBC % 0.3 Immature Gran # 0.60 Segmented Neutrophils 68 Band Neutrophils 4 Lymphocytes 9 L Monocytes 19 H Nucleated RBCs # 0.05 Platelet Estimate Adequate Immature Plt Fraction 0.0 Hypochromasia Slight Ovalocytes Slight Sodium 138 Potassium 4.5 Chloride 102 Carbon Dioxide 28 Anion Gap 12.5 BUN 15 Creatinine 1.30 GFR Calculation 85 BUN/Creatinine Ratio 11.00 Glucose 120 H Calculated Osmolality 276.7 Calcium 8.6 Magnesium 2.3 Free T3 pg/mL 2.8 Ur L.pneumophila Ag Ur Strep pneumoniae Ag 02/25/17 13:01 WBC RBC Hgb Hct MCV MCH MCHC RDW Plt Count MPV Neut % (Auto) Lymph % (Auto) [place] % (Auto) Eos % (Auto) Baso % (Auto) Neut # (Auto) Lymph # (Auto) [place] # (Auto) Eos # (Auto) Baso # (Auto) Total Counted Immature Gran % Nucleated RBC % Immature Gran # Segmented Neutrophils Band Neutrophils Lymphocytes Monocytes Nucleated RBCs # Platelet Estimate Immature Plt Fraction Hypochromasia Ovalocytes Sodium Potassium Chloride Carbon Dioxide Anion Gap BUN Creatinine GFR Calculation BUN/Creatinine Ratio Glucose Calculated Osmolality Calcium Magnesium Free T3 pg/mL Ur L.pneumophila Ag Cancelled Ur Strep pneumoniae Ag Cancelled Preliminary micro results at discharge 02/25/17 13:01 Blood Culture - Preliminary Blood No growth at 3 days 02/25/17 13:01 Blood Culture - Preliminary Blood No growth at 3 days - Imaging and Cardiology Procedure: Chest x-ray: report reviewed by , CT - chest: report reviewed by DS: Provider Date of admission: 02/25/17 13:01 Primary care physician: . No PCP Attending physician on admission: Debbie Delarosa MD Consults: 02/25/17 13:04 Consult to Physician [CONS] Routine Comment: Consulting Provider: Moises Angel When should Consulting Provider be notified: Now Consult to Specialist Group: Pulmonology Person Notified: Jorge Date Notified: 02/25/17 Time Notified: 15:13 02/26/17 06:15 Consult to Physician [CONS] Routine Comment: new onset afib Consulting Provider: Cardiology - [facility] When should Consulting Provider be notified: Now Consult to Specialist Group: Cardiology When should Consulting Provider be notified: Now Person Notified: Aileen Date Notified: 02/26/17 Time Notified: 07:50 Discharging clinician: Jesus Silva Expected date of discharge: 03/01/17
--- NOTE | 2017-03-01 10:50 | Pulmonology Progress Note ---
Pulmonary - PN: Subj Interval history: This is a 56-year-old black male whom I am seeing for Dr. Wilmar Angel. Patient was seen along with his . He has been healthy. He was admitted with a right lower lung pneumonia. He went on to develop atrial fib. He is back in a sinus rhythm and his breathing is better. He had trouble voiding and had to have in and out bladder catheterizations which is improved. He is been constipated but this is improved. Patient and his are both anxious to go home and Dr. Angel said that he thinks the patient could safely go home on antibiotics. Lab. White count is 14,600 with 66.56 12 lymphs and 16 monos. H&H is 12.7/ 37.2 and platelets of 302,000. Electrolytes are normal. Creatinine is 1.30 with a BUN of 25. Physical exam. Vital signs. See below. Afebrile for about 24 hours Psychiatric. Oriented 3 Neurologic cranial nerves are intact long track motor functions intact Face symmetrical. No edema of the lips or tongue Neck. Symmetrical. No meningismus Lymphatics. No submandibular cervical or supraclavicular adenopathy Chest. Mild loose large airway congestion Heart regular no gallop Abdomen. Nondistended. Positive bowel sounds Extremities. Nothing to suggest deep venous thrombophlebitis The remainder the exam is noncontributory. Plan. 1. Have discussed with Dr. Amaury Coyle, the patient's hospitalist. From a pulmonary standpoint he is ready to go home with antibiotics 2. I will sign off. Reconsult as needed Exam (Progress Note) - Constitutional Vitals: Period Temp Pulse Resp BP Sys/Markham Pulse Ox Last 24 Hr 98.1 F-99.1 F 71-89 17-20 129-156/68-86 93-99 Results - Labs CBC & BMP: 03/01/17 04:49 03/01/17 04:49 Specialty Discharge - Follow Up or Referrals Follow up with: TOMMY, Dulce Maria [Other] - 5 Days Francesco Milner MD [Physician] - 2 Weeks (with EKG)
== END 2017-03-01 11:33 | disposition home or self-care (01) | DRG 871 ==
LOC: N.ED 10:06 → N.EDINP 13:01 → SUATTDRO 13:01 → N.5E 14:48 → N.TELEN 02-26 07:15
PROVIDERS: ADMIT Internal Medicine; ATTEND Hospitalist

== ENCOUNTER 2017-03-03 13:20 | Inpatient (IN) ==
--- NOTE | 2017-03-03 14:02 | XRay Report ---
XR chest 2V Indication: Chest pain. Comparison: Chest x-ray 02/28/2017 Technique: PA and lateral chest x-ray was performed. Findings: Since comparison study has been interval partial clearing of the lung bases as well as development of right-sided pleural effusion which is small in size. Discoid atelectatic changes are present within the right lung base. Partial atelectasis of the right lower lobe is suggested. Chest is otherwise stable. Impression: 1. Interval partial clearing of the lung bases suggesting improving pulmonary edema is demonstrated. Improvement in atelectasis is also likely. 2. Discoid atelectasis remains within the right lower chest and partial atelectasis of the right lower lobe is suggested. 3. Small right-sided pleural effusion is present. 03/03/2017 1:58 PM PROCEDURE INTERPRETED AT [facility] DEPARTMENT OF RADIOLOGY Final Report Signed by: Dr. Bud Swan
[2017-03-03 14:19] LABS: Basophils # 0.1 10*3/uL (0.0-0.2); Basophils % 0.4 % (0.0-0.8); Eosinophils # 0.1 10*3/uL (0.0-0.87); Eosinophils % 0.4 % (0.00-10.9); Hematocrit 39.4 VOL% (42.0-52.0); Hemoglobin 13.6 GM/DL (14.0-18.0); Mean Corpuscular HGB Conc 34.5 GM/DL (32-36); Mean Corpuscular Hemoglobin 28 PG (27-34); Mean Corpuscular Volume 81.7 FL (87-102); Mean Platelet Volume 9.5 FL (9.6-12.0); Monocytes % 10.2 % (1.7-12.7); NRBC # 0.03 10*3/uL; Neutrophils # 15.1 10*3/uL (1.4-7.4); Platelet Count 416 T/CUMM (130-400); Red Blood Count 4.82 MC/CUMM (3.8-5.5); Red Cell Distribution Width 14.5 % (9.3-17.3); White Blood Count 19.9 T/CUMM (4-12)
[2017-03-03] MEDS ORDERED: ALUM/MAG/SIMETH/LIDO VISC 1:1 30 ML BOTTLE PO STA (14:44)
[2017-03-03 14:49] LABS: Albumin 2.6 G/DL (3.4-5.0); Calcium 8.8 MG/DL (8.5-10.1); Osmolality,Calculated 268.4 MOS/KG (273-304); Potassium 4.9 MMOL/L (3.5-5.1); Total Protein 7.6 G/DL (6.4-8.3)
[2017-03-03 14:51] LABS: Troponin I Only < 0.015 NG/ML (0.00-0.045)
[2017-03-03] MEDS ORDERED: ALUM/MAG/SIMETH/LIDO VISC 1:1 30 ML BOTTLE PO ONE (14:59)
--- NOTE | 2017-03-03 15:09 | CT Report ---
CT abdomen pelvis wo con Indication: Right upper quadrant and upper epigastric pain. CT ABDOMEN AND PELVIS WITHOUT CONTRAST DLP: 675 mGy*cm. One or more of the following dose reduction techniques was used: Automated exposure control, adjustment of the mA and/or kV according the patient size, or use of iterative reconstruction techniques. Comparison: 02/25/2017, 6 days ago. Technique: Axial noncontrast CT images of the abdomen and pelvis were obtained. Abdomen: A moderate-sized right parapneumonic effusion has developed with loculations and atelectasis of the right lower lobe. Cavitation of opacified right lower lobe parenchyma noted concerning for cavitary pneumonia. Thick parenchymal bands have developed in the left lung base as well but no infiltrates are seen on the left. Heart size is normal. Trace pericardial effusion noted. Unenhanced liver, spleen, pancreas, gallbladder, adrenal glands and kidneys are unremarkable. There are no kidney stones. No bowel obstruction. Pelvis: Normal appendix without inflammation. Urinary bladder and rectosigmoid colon are unremarkable. Prostate is normal in size. No free fluid, free air or lymphadenopathy. Impression: 1. Progression of right basilar pneumonia, now with cavitation of the right lower lobe infiltrate and loculated right parapneumonic effusion. 2. No acute intra-abdominal or pelvic pathology identified absent contrast. PROCEDURE INTERPRETED AT [facility] DEPARTMENT OF RADIOLOGY Final Report Signed by: Hiro Starkey M.D.
[2017-03-03 15:48] LABS: Band Neutrophils 2 % (0-10); Giant Platelets Few; Hypochromasia 1+; Lymphocytes 11 % (20-55); Platelet Estimate Adequate; Segmented Neutrophils 81 % (50-85); Total Cells Counted 100
--- NOTE | 2017-03-03 15:50 | Emergency Department Note ---
Willian Chowdary Hilary, am scribing for, and in the presence of, Jacob Gleason MD 14:43. Rosibel Chowdary Phillip K, MD, personally performed the services described in this documentation, ascribed by Kristin Dorsey in my presence, and it is both accurate and complete 550 . Arrival - Arrival Chief Complaint: Chest Pain Stated Complaint: chest pain ED Nursing Triage Note: PT C/O PAIN TO CHEST WALL WITH MOVEMENT,BREATHING, AND COUGHING. PT WAS DIAGNOSED AND ADMITTED WITH PNEUMONIA AND PLEURISY LAST WEEK, DISCHARGED HOME ON FRIDAY. PT REPORTS TEMP OF 101 LAST NIGHT AND WORSENING PAIN TO CHEST WALL. Mode of Arrival: Ambulatory Limitations: No Limitations Source: Patient, RN Notes Reviewed - History of Present Illness HPI Narrative: Pt is a 56 y/o male presenting to the ED with c/o chest pain with movement which onset last week. Pt was diagnosed and admitted with pneumonia and pleurisy last week and discharged 2 days ago. Pts states that he had a temperature of 101.8 last night. Pt states his chest hurts when he moves or coughs and it radiates to the right side of his back but denies SOB, nausea or vomiting. No other complaints or problems stated in the ED. Onset (ago): day(s) Consistency: constant Severity: mild Severity scale (1-10): 2 Allergies/Adverse Reactions: Allergies Allergy/AdvReac Type Severity Reaction Status Date / Time No Known Allergies Allergy Verified 03/03/17 13:34 Home Medications: Home Medications Medication Instructions Recorded Confirmed Type Omeprazole [Prilosec] 20 mg PO DAILY 02/25/17 03/03/17 History guaiFENesin [Mucinex] 600 mg PO DAILY 02/25/17 03/03/17 History Cefuroxime Tab [Ceftin] 500 mg PO BID #14 tablet 03/01/17 03/03/17 Rx Sotalol [Betapace] 80 mg PO BID #60 tablet 03/01/17 03/03/17 Rx Review of System - Review of System 12 point system: reviewed and no additional remarkable complaints except as stated - Review of System Constitutional: Present: fever Respiratory: Absent: respiratory distress Cardiovascular: Present: chest pain Gastrointestinal: Absent: nausea, vomiting Medical,Surgical,& Family Hx - Medical History Psychological: No history of: Anxiety Disorders, ADHD, Behavior Problems, Bipolar Disorder, Depression, Previous Suicide Attempt, Psychiatric/Substance Abuse Tx, Schizophrenia, Violent Behavior, Psychiatric Problems Gastrointestinal: History of: GERD - Surgical History Orthopedic Surgeries: Surgical HX of;: Orthopedic Surgery (Right wrist) - Social History Smoking Status: Never smoker Frequency of Alcohol Use: None Type of Drug Use: None Exam Vital Signs: Vital Signs Temperature 99.0 F 03/03/17 13:31 Pulse Rate 85 03/03/17 13:31 Respiratory Rate 18 03/03/17 14:00 Blood Pressure 111/87 03/03/17 13:31 O2 Sat by Pulse Oximetry 95 03/03/17 13:31 - General General appearance: alert, in no apparent distress - Head Head exam: Present: atraumatic, normocephalic - Eye Eye exam: Present: normal appearance, PERRL, EOMI - ENT ENT exam: Present: mucous membranes dry, TM's normal bilaterally. Absent: mucous membranes moist - Neck Neck exam: Present: full ROM, trachea midline. Absent: tenderness - Chest Chest inspection: Present: symmetric chest wall rise. Absent: tenderness - Respiratory Respiratory exam: Absent: normal lung sounds bilaterally (decreased breath sounds on the right ), respiratory distress - Cardiovascular Cardiovascular exam: Present: regular rate, normal rhythm, normal heart sounds. Absent: murmur, rubs, gallop - Abdominal Exam Abdominal exam: Present: soft, tenderness (mid epigastric and RUQ), normal bowel sounds. Absent: distention - Extremities Exam Extremities exam: Present: full ROM. Absent: tenderness - Back Exam Back exam: Present: full ROM. Absent: tenderness - Neurological Exam Neurological exam: Present: alert, oriented X3, CN II-XII intact. Absent: motor sensory deficit - Psychiatric Psychiatric exam: Present: normal affect, normal mood - Skin Skin exam: Present: warm, dry, intact, normal color. Absent: rash Results - Labs CBC & BMP: 03/03/17 14:09 03/03/17 14:09 Lab Results: I have reviewed the patients labs Labs: Laboratory Tests 03/03/17 14:09 WBC 19.9 H D RBC 4.82 Hgb 13.6 L Hct 39.4 L MCV 81.7 L Plt Count 416 H D MPV 9.5 L Neut % (Auto) 76.0 H Lymph % (Auto) 10.0 L Neut # (Auto) 15.1 H Mcintosh # (Auto) 2.0 H Laboratory Tests 03/03/17 03/03/17 14:09 14:09 Sodium 133 L Potassium 4.9 Chloride 101 Carbon Dioxide 27 Creatinine 1.40 H Glucose 121 H Calculated Osmolality 268.4 L AST 44 H ALT 63 H Alkaline Phosphatase 120 H Troponin I < 0.015 Total Protein 7.6 Albumin 2.6 L Globulin 5.0 H Albumin/Globulin Ratio 0.5 L Laboratory Tests 03/03/17 14:09 B-Natriuretic Peptide 64 - Diagnostic Findings Procedure: Chest x-ray: report reviewed by me (1. Internal partial clearing of the lung bases suggesting improving pulmonary edema is demonstrated. Improvement in atelectasis is also likely. 2. Discoid atelectasis remains within the right lower chest and partial atelectasis of the right lower lobe is suggested. 3. Small right-sided pleural effusion is present. ), CT Abdomen and Pelvis: report reviewed by me (1. progression of right basilar pneumonia, now with cavitation of the right lower lobe infiltrate and loculated right parapneumonic effusion. 2. No acute intra-abdominal or pelvic pathology identidied absent contrast.) Disposition Clinical Impression: Right parapneumonic effusion, Cavitary pneumonia right lower lobe, Chest pain Case discussed with: patient, patient's family Disposition: Still a Patient Condition: Guarded Additional Instructions: Admit to the hospitalist
[2017-03-03] MEDS ORDERED: diphenhydrAMINE CAP 25 MG CAPSULE PO PRN (16:25)
[2017-03-03] MEDS ORDERED: HYDROmorphone 2 MG/1 ML VIAL IV PRN (16:25)
[2017-03-03] MEDS ORDERED: PROMETHAZINE 25 MG TABLET PO PRN (16:25)
[2017-03-03] MEDS ORDERED: ACETAMINOPHEN 325 MG TABLET PO PRN (16:25)
[2017-03-03] MEDS ORDERED: ONDANSETRON 4 MG/2 ML VIAL IV PRN (16:25)
[2017-03-03] MEDS ORDERED: ALBUTEROL 2.5 MG/3 ML NEB RESP TX PRN (16:25)
--- NOTE | 2017-03-03 16:31 | Hospitalist History & Physical ---
<Andreia Rock - Last Filed: 03/03/17 16:23> Assessment and Plan - Time spent with patient Time spent with patient: Greater than 30 minutes (1) Leukocytosis Status: Acute Assessment and plan: Mr. Garibay is a very pleasant 56-year-old -[place]og[place] male with history of GERD just discharged 3 days ago with sepsis due to community-acquired pneumonia. Patient started having progressive shortness of breath and chest pain with deep breathing and coughing on the right last night. Patient now admitted with a cavitary pneumonia with leukocytosis and fever. Dr. Kent will see and examined patient and further recommendations to follow. Cavitary pneumonia/leukocytosis/fever--patient will be started on Zosyn, every 6 hour duo nebs, and as needed albuterol breathing treatments. Patient will be given IV fluids and pain medicine. We will also give him incentive spirometer and consult Dr. Angel who saw him on his previous admission. A. fib--patient had A. fib with RVR on his last admission and was placed on sotalol by cardiology. Will restart this and continue to monitor. He was not started on anticoagulation. Right now patient is in normal sinus rhythm. Elevated liver enzymes--these are only mildly elevated, will repeat this in the morning and continue to trend. Current Visit: Yes (2) Cavitary pneumonia Status: Acute Current Visit: Yes (3) Pleurisy Status: Acute Current Visit: No (4) GERD (gastroesophageal reflux disease) Status: Chronic Current Visit: No History of Present Illness Chief complaint: Right chest pain and abdominal pain History of present illness: Mr. Garibay is a 56 year old -[place]og[place] male with no reported medical history admitted through the emergency room with shortness of breath and right- sided chest and abdominal pain. Patient had been admitted last week with sepsis and hemoptysis due to a right lower lobe infiltrate consistent with community-acquired pneumonia. Patient received IV fluids, antibiotic therapy and breathing treatments. Dr. Angel from pulmonary saw him at the time. He improved symptomatically was afebrile and oxygenating well with blood and sputum cultures being negative. He did develop some urinary retention with A. fib with RVR that was treated by cardiology. Echo showed a left ventricular EF of 60%. He converted to normal sinus rhythm and was discharged home on sotalol. Patient was discharged on 03/01/2017. Patient states he was doing well until last night when he started developing a right sided chest pain that radiated through to the back and flank. He states it hurts worse when he takes a deep breath and when he coughs. Patient denies headache, dysphasia, dysuria, or lower extremity edema. He is having chest pain and shortness of breath. Upon exam patient has decreased breath sounds in the right lower lobes and he is using accessory muscles and he does have paradoxical movement on the right. Patient will not cough and he cannot clear his secretions adequately. Patient' s states he ran 101.8 fever last night. Right now his temp is 99 and his vital signs are stable. His white count is elevated at 19.9 and his creatinine is elevated at 1.4. His AST, ALT, and alkaline phosphatase are all mildly elevated as well. CT scan of the abdomen and pelvis show a progression of right basilar pneumonia now with cavitation of the right lower lobe infiltrate and loculated right parapneumonic effusion. There is no acute intra-abdominal pathology present. After discussion with Dr. Gleason the ED physician and Dr. Dowling the admitting hospitalist, it was agreed patient would be admitted for further evaluation and treatment. Patient's medicines were reconciled and he is a full code. Home Medications Medication Instructions Recorded Confirmed Type Omeprazole [Prilosec] 20 mg PO DAILY 02/25/17 03/03/17 History guaiFENesin [Mucinex] 600 mg PO DAILY 02/25/17 03/03/17 History Cefuroxime Tab [Ceftin] 500 mg PO BID #14 tablet 03/01/17 03/03/17 Rx Sotalol [Betapace] 80 mg PO BID #60 tablet 03/01/17 03/03/17 Rx Allergies Allergy/AdvReac Type Severity Reaction Status Date / Time No Known Allergies Allergy Verified 03/03/17 13:34 Medical,Surgical,& Family Hx - Medical History Psychological: No history of: Anxiety Disorders, ADHD, Behavior Problems, Bipolar Disorder, Depression, Previous Suicide Attempt, Psychiatric/Substance Abuse Tx, Schizophrenia, Violent Behavior, Psychiatric Problems Respiratory: History of: Pneumonia Gastrointestinal: History of: GERD - Surgical History Orthopedic Surgeries: Surgical HX of;: Orthopedic Surgery (Right wrist) - Family History Family History: Reports;: Family Heart Disease - Social History Smoking Status: Never smoker Frequency of Alcohol Use: None Type of Drug Use: None Marital Status: Lives With:: Spouse Functional capacity: independent ambulation Review of systems: A complete 10 system review of systems was obtained and pertinent positives and negatives per HPI Exam - Constitutional Vitals: Period Temp Pulse Resp BP Sys/Markham Pulse Ox Last 24 Hr 99.0 F-99.0 F 85-85 18-18 111-111/87-87 95 Exam: Constitutional System: Mild distress. No tremulousness. Head: Normocephalic, atraumatic. Ears, Nose and Throat System: No evidence of Otitis or Mastoiditis. No epistaxis or discharge Eyes System: Pupils equal, round, and reactive. Extraocular muscles intact. Neck: Supple, without adenopathy, No jugular venous distention. No thyromegaly, neck mass, or prior surgery apparent. Respiratory System: Chest decreased breath sounds on right lower lobe to auscultation. Cardiovascular System: Heart with regular rate and rhythm. No murmur. GI System: Abdomen soft, nontender. Normo active bowel sounds present. Musculoskeletal System: limbs with no pedal edema. Full distal pulses. Neurological System: No discernable sensory deficit. No aphasia Psychiatric System: Conversation is rational Results - Labs CBC & BMP: 03/03/17 14:09 03/03/17 14:09 Lab Results: I have reviewed the past 24 hour labs - Diagnostic Findings Procedure: Chest x-ray: report reviewed by me (Interval partial clearing of the lung bases suggesting improving pulmonary edema. Improvement in atelectasis. Discoid ask atelectasis remains within the right lower chest and partial atelectasis of the right lower lobe. Small right-sided pleural effusion), CT Abdomen and Pelvis: report reviewed by me (Progression of right basilar pneumonia now with cavitation of the right lower lobe infiltrate and loculated right parapneumonic effusion. No acute intra-abdominal or pelvic pathology identified) <Jeffery Dowling - Last Filed: 03/03/17 18:49> History of Present Illness History of present illness: Shared visit with PA, agree with management plans. I independently reviewed this patient and reviewed his labs and imaging. Brief addedendum 56-year-old man recently admitted for pneumonia, discharged 2 days ago on oral antibiotics. Presenting again today with right-sided chest pain which is worse on deep inspiration, and high grade fever. He was Evaluated in the emergency room, a CT scan of the abdomen and pelvis, CT scan was done and was showing worsening pneumonia and now with parapneumonic effusion with cavitation and loculation. Examination: Acutely ill looking In painful distress Decreased air entry on the right side. Crackles+ Labs: Mild hyponatremia, leukocytosis and thrombocytosis likely due to sepsis. Elevated LFTs likely due to sepsis. Elevated BUN/Cr Assessment: Sepsis due to pneumonia with parapneumonic effusion. Hospital-acquired pneumonia with secondary parapneumonic effusion. Mild pericardial effusion found on CT chest. Mild acute kidney injury may be related to sepsis. Elevated transaminases. Pleuritic chest pain is likely due to pneumonia with effusion. Plan: Admit to the floor Start antibiotics after cultures have been sent, start on vancomycin/Zosyn and Levaquin. Respiratory therapy with DUonebs MOnitor LFT's IVF hydration and monitor renal function Consult pulmonology, he would likely need thoracentesis for fluid analysis, will defer to pulmonology. Pain control with narcotics as needed. Exam - Constitutional Vitals: Period Temp Pulse Resp BP Sys/Markham Pulse Ox Last 24 Hr 99.0 F-100 F 80-89 18-20 111-152/68-93 95-99 Results - Labs CBC & BMP: 03/03/17 14:09 03/03/17 14:09
[2017-03-03] MEDS ORDERED: LEVOFLOXACIN INJ 750 MG in PREMIX 1 EACH IV SCH (17:00)
[2017-03-03] MEDS: ENOXAPARIN 40 MG/0.4 ML SYRINGE SUBCUT SCH (17:43)
[2017-03-03] MEDS: PIPERACILLIN/TAZOBACTAM 3,375 MG in SODIUM CHLORIDE 0.9% 100 ML IV SCH (17:44)
[2017-03-03] MEDS: PANTOPRAZOLE 40 MG TABLET PO SCH (17:44)
[2017-03-03] MEDS: SODIUM CHLORIDE 0.9% 1,000 ML IV SCH (18:23)
[2017-03-03] MEDS: ALBUTEROL/IPRATROPIUM 3 ML NEB RESP TX SCH (19:21)
[2017-03-03] MEDS: VANCOMYCIN INJ 1,500 MG in SODIUM CHLORIDE 0.9% 500 ML IV SCH (21:03)
[2017-03-03] MEDS: SOTALOL 80 MG TABLET PO SCH (21:04)
[2017-03-03] MEDS: guaiFENesin/DM ER 600-30 MG TABLET PO PRN (21:04)
[2017-03-03] MEDS: ZALEPLON 5 MG CAPSULE PO PRN (21:04)
[2017-03-04] MEDS: ALBUTEROL/IPRATROPIUM 3 ML NEB RESP TX SCH ×4 (00:10→20:32)
[2017-03-04] MEDS: PIPERACILLIN/TAZOBACTAM 3,375 MG in SODIUM CHLORIDE 0.9% 100 ML IV SCH ×4 (00:27→19:42)
[2017-03-04] MEDS: SODIUM CHLORIDE 0.9% 1,000 ML IV SCH ×4 (03:24→19:12)
--- NOTE | 2017-03-04 06:00 | EKG Report ---
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
[2017-03-04 06:59] LABS: Basophils # 0.1 10*3/uL (0.0-0.2); Basophils % 0.3 % (0.0-0.8); Eosinophils # 0.1 10*3/uL (0.0-0.87); Eosinophils % 0.3 % (0.00-10.9); Hematocrit 35.1 VOL% (42.0-52.0); Hemoglobin 11.6 GM/DL (14.0-18.0); Immature Granulocytes % 2.2 %; Immature Granulocytes Absolute 0.48 #; Lymphocytes # 1.7 10*3/uL (1.4-4.0); Lymphocytes % 7.8 % (21.2-54.2); Mean Corpuscular Hemoglobin 27 PG (27-34); Mean Corpuscular Volume 82.6 FL (87-102); Mean Platelet Volume 10.2 FL (9.6-12.0); Monocytes % 9.3 % (1.7-12.7); NRBC # 0.02 10*3/uL; Neutrophils # 17.1 10*3/uL (1.4-7.4); Neutrophils % 80.1 % (38.7-73.9); Platelet Count 363 T/CUMM (130-400); Red Blood Count 4.25 MC/CUMM (3.8-5.5); Red Cell Distribution Width 14.6 % (9.3-17.3); White Blood Count 21.4 T/CUMM (4-12)
[2017-03-04 07:27] LABS: Magnesium 2.3 MG/DL (1.8-2.4); Potassium 4.9 MMOL/L (3.5-5.1)
[2017-03-04 07:28] LABS: Band Neutrophils 3 % (0-10); Hypochromasia 1+; Lymphocytes 7 % (20-55); Ovalocytes Slight; Platelet Estimate Adequate; Segmented Neutrophils 79 % (50-85); Total Cells Counted 100
--- NOTE | 2017-03-04 08:36 | EKG Report ---
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
[2017-03-04] MEDS: PANTOPRAZOLE 40 MG TABLET PO SCH (08:57)
[2017-03-04] MEDS: SOTALOL 80 MG TABLET PO SCH ×2 (08:57→21:14)
[2017-03-04] MEDS: guaiFENesin/DM ER 600-30 MG TABLET PO PRN ×2 (08:57→21:14)
[2017-03-04] MEDS: VANCOMYCIN INJ 1,500 MG in SODIUM CHLORIDE 0.9% 500 ML IV SCH ×2 (09:02→21:13)
--- NOTE | 2017-03-04 09:56 | Pulmonology Consult Note ---
Assessment and Plan (1) Parapneumonic effusion Status: Acute Assessment and plan: The patient looks like he is developing a complicated parapneumonic effusion or possibly even empyema. We will see if we can get a thoracentesis today under ultrasound. He ultimately may need a chest tube Current Visit: Yes (2) Right lower lobe pneumonia Status: Acute Assessment and plan: He is getting broad-spectrum penicillin along with other antibiotics. We will see how the thoracentesis goes. He may need a bronchoscope. Current Visit: No History of Present Illness Chief complaint: Pneumonia History of present illness: Mr. Garibay is a 56 year old black male that has been quite healthy and came in last week with a right lower lobe pneumonia. He was having blood-tinged sputum and some fever and was fairly ill. While is in the hospital he had a bout of atrial fibrillation. He was feeling better and went home on Ceftin. At home he still had a little bit of fever and chills and some pleurisy. He has had trouble coughing up secretions. He just did not feel very well so he came back and now he has more pleural effusion. He may be developing a complicated parapneumonic effusion. He is admitted for further treatment. Home Medications Medication Instructions Recorded Confirmed Type Omeprazole [Prilosec] 20 mg PO DAILY 02/25/17 03/03/17 History guaiFENesin [Mucinex] 600 mg PO DAILY 02/25/17 03/03/17 History Cefuroxime Tab [Ceftin] 500 mg PO BID #14 tablet 03/01/17 03/03/17 Rx Sotalol [Betapace] 80 mg PO BID #60 tablet 03/01/17 03/03/17 Rx Allergies Allergy/AdvReac Type Severity Reaction Status Date / Time No Known Allergies Allergy Verified 03/03/17 13:34 - Constitutional Constitutional: Present: chills, fever(s). Absent: weight gain, weight loss - EENT Eyes: Absent: loss of vision Ears: Absent: decreased hearing Nose, mouth and throat: Absent: headache(s), sinus pressure - Cardiovascular Cardiovascular: Present: chest pain at rest, dyspnea. Absent: palpitations - Respiratory Respiratory: Present: cough, dyspnea, hemoptysis, pain on inspiration - Gastrointestinal Gastrointestinal: Absent: abdominal pain, change in bowel habits, dysphagia, nausea, vomiting - Genitourinary Genitourinary: Present: difficulty urinating. Absent: dysuria, nocturia, urinary frequency - Musculoskeletal Musculoskeletal: Absent: arthralgias - Neurological Neurological: Absent: abnormal speech, focal weakness Exam (Pulmonay) H&P - Constitutional Vitals: Period Temp Pulse Resp BP Sys/Markham Pulse Ox Last 24 Hr 97.7 F-100 F 75-96 18-22 111-152/64-93 95-99 General appearance: normal weight, mild distress (He looks reasonably comfortable sitting up in bed.) - Head Head exam: Present: normal inspection, normocephalic - Eye Eye exam: Present: EOMI. Absent: scleral icterus Pupils: Present: JERRY - ENT ENT exam: Present: normal exam - Neck Neck exam: Present: normal inspection. Absent: lymphadenopathy, thyromegaly - Respiratory Respiratory exam: Present: decreased breath sounds (He does have decreased breath sounds in his right chest.), rhonchi - Cardiovascular Cardiovascular exam: Present: regular rate and rhythm. Absent: gallop, systolic murmur - GI/Abdominal GI/Abdominal exam: Present: normal bowel sounds, soft. Absent: organomegaly, tenderness - Extremities Exam Extremities exam: Absent: calf tenderness, edema - Back Exam Back exam: Present: normal inspection - Neurological Exam Neurological exam: Present: alert, oriented X3, CN II-XII intact - Psychiatric Psychiatric exam: Present: normal affect - Skin Skin exam: Present: warm, dry Medical,Surgical,& Family Hx - Medical History Cardio: History of: Cardiac Dysrhythmia (afib), Hypertension Psychological: No history of: Anxiety Disorders, ADHD, Behavior Problems, Bipolar Disorder, Depression, Previous Suicide Attempt, Psychiatric/Substance Abuse Tx, Schizophrenia, Violent Behavior, Psychiatric Problems Respiratory: History of: Pneumonia Gastrointestinal: History of: GERD Musculoskeletal: History of: Musculoskeletal Problems (wrist surgery 1994) - Surgical History Orthopedic Surgeries: Surgical HX of;: Orthopedic Surgery (Right wrist) - Family History Family History: Reports;: Family Heart Disease - Social History Smoking Status: Never smoker Frequency of Alcohol Use: None Type of Drug Use: None Results - Labs CBC & BMP: 03/04/17 05:57 03/04/17 05:57 - Diagnostic Findings Procedure: Chest x-ray: image reviewed by me, report reviewed by me (Does have more consolidation and effusion present in the right base.), CT: image reviewed by me, report reviewed by me (He does have more right effusion that is somewhat loculated.)
--- NOTE | 2017-03-04 11:54 | XRay Report ---
XR chest 2V Indication: SOB Comparison: Chest x-ray dated March 03, 2017 Technique: Frontal and lateral views of the chest. Findings: Cardiomediastinal silhouette appears grossly unchanged. Mildly progressed right mid and lower lung atelectasis/consolidation and pleural fluid. Visualized osseous and surrounding soft tissue structures appear grossly unchanged. IMPRESSION: As above. PROCEDURE INTERPRETED AT [facility] DEPARTMENT OF RADIOLOGY Final Report Signed by: Dr Pedro Kothari
[2017-03-04] MEDS ORDERED: ALTEPLASE 2 MG VIAL ONE (11:57)
--- NOTE | 2017-03-04 12:06 | Post Interventional Procedure ---
Pre-op diagnosis: Loculated right parapneumonic effusion Post-op diagnosis: same Procedure: US guided thoracentesis, left 10-Fr drain in place, infused tPA 8 mg in 10 cc NS Radiologist: Hiro Starkey Anesthesia: local Specimens: other (200 cc straw colored fluid for lab) Estimated blood loss: none Complications: none Condition: stable Description/Findings: Multiple loculated fluid pockets and only a minimal amount of fluid obtained with thoracentesis. Left a 10-Fr right pleural drain in place for overnight drainage. Injected 8 mg tPA. Tube clamped. Will place on suction via Pleurivac after 4 hours (1600). Assessment and Plan - Time spent with patient Time spent with patient: Less than 30 minutes
--- NOTE | 2017-03-04 12:40 | XRay Report ---
XR chest post procedure Indication: Status post thoracentesis. Comparison: Chest x-ray 03/04/2017. Technique: PA/lateral chest x-ray. Findings: Right-sided pleural effusion has decreased in size since comparison study. Interval insertion of percutaneous pigtail catheter within the right chest is demonstrated. There appears to be some airspace consolidation mid lower right lung may reflect evidence of infection as well as atelectasis. The right upper lung and left lung are clear. Heart size may be minimally enlarged. Bones and soft tissues are stable. Impression: 1. Interval insertion of percutaneous chest tube with decreased size of right-sided pleural effusion. No pneumothorax is present. 2. Airspace opacification mid to lower right lung compatible with infection and/or atelectasis is demonstrated. 03/04/2017 12:36 PM PROCEDURE INTERPRETED AT [facility] DEPARTMENT OF RADIOLOGY Final Report Signed by: Dr. Bud Swan
[2017-03-04] MEDS: HYDROmorphone 2 MG/1 ML VIAL IV PRN ×2 (12:42→16:26)
--- NOTE | 2017-03-04 12:48 | Hospitalist Progress Note ---
Assessment and Plan (1) Right lower lobe pneumonia Status: Acute Assessment and plan: 1)RLL pneumonia now with parapneumonic effusion- lab studies pendign on pleural fluid. Drain in place. Conitnue antibiotics, O2. WBC now up to 21. 2)afib- in NSR on sotolol 3)GERD- on PPI. Current Visit: No (2) GERD (gastroesophageal reflux disease) Status: Chronic Current Visit: No (3) Parapneumonic effusion Status: Acute Current Visit: Yes Hospitalist: Subjective Interval history: Mr Garibay feels ok this morning. I saw him as he was getting ready for thoracentesis. He denied shortness of breath while on NC. Still with some pleuritic CP on right. Dr Starkey told me that he had loculated fluid and only got 200cc out. He left a catheter in place and is instilling TPA today to see if it will increase drainage. Lab studies pending. Exam - Constitutional Vitals: Period Temp Pulse Resp BP Sys/Markham Pulse Ox Last 24 Hr 97.7 F-100 F 75-96 17-22 111-152/62-93 95-99 General appearance: no acute distress, over weight - Head Head exam: Present: normocephalic, atraumatic - Eye Eye exam: Present: EOMI. Absent: scleral icterus - Respiratory Respiratory exam: Present: decreased breath sounds (on right, otherwise clear) - Cardiovascular Cardiovascular exam: Present: regular rate and rhythm - GI/Abdominal GI/Abdominal exam: Present: normal bowel sounds, soft. Absent: tenderness - Extremities Exam Extremities exam: Absent: edema Results - Labs CBC & BMP: 03/04/17 05:57 03/04/17 05:57 Lab Results: I have reviewed the past 24 hour labs
[2017-03-04 12:51] LABS: Lymphocytes,Pleural Fluid 8 %; Monocytes,Pleural Fluid 2 %; Neutrophils,Pleural Fluid 90 %; RBC,Pleural Fluid 1054 T/CUMM
--- NOTE | 2017-03-04 15:53 | Ultrasound Report ---
US thoracentesis w tube place Indication: Pleural effusion. PLACEMENT RIGHT CHEST TUBE Description: A formal timeout was performed. The right back was prepped and draped in sterile fashion. Right pleural effusion was identified with ultrasound. It was accessed with a 8 [place] pigtail catheter using trocar technique and sonographic guidance. Captured sonographic image documents position of the catheter. After removing the trocar, we were able to obtain only 200 cc of yellow fluid. Sonographic evaluation shows persistent fluid in the right hemithorax. Therefore, the 8 [place] pigtail catheter was removed over wire and a 10 [place]inean pigtail catheter advanced. Only small amount of additional fluid could be aspirated. TPA, 8 mg was then injected in 10 cc normal saline, the catheter locked closed. The catheter was anchored with a StatLock device. Patient was transferred to his room in stable condition. Impression: Loculated right parapneumonic effusion. Unable to aspirate more than 200 cc of fluid. Therefore, TPA infusion was performed and a 10 [place]ine[place] pigtail catheter was left in place for chest tube drainage. PROCEDURE INTERPRETED AT [facility] DEPARTMENT OF RADIOLOGY Final Report Signed by: Hiro Starkey M.D.
[2017-03-04] MEDS: ENOXAPARIN 40 MG/0.4 ML SYRINGE SUBCUT SCH (17:25)
[2017-03-04] MEDS: LEVOFLOXACIN INJ 750 MG in PREMIX 1 EACH IV SCH (17:25)
[2017-03-04] MEDS: ACETAMINOPHEN 325 MG TABLET PO PRN (19:08)
[2017-03-04] MEDS: ZALEPLON 5 MG CAPSULE PO PRN (21:14)
[2017-03-05] MEDS: ALBUTEROL/IPRATROPIUM 3 ML NEB RESP TX SCH ×4 (00:38→19:10)
[2017-03-05] MEDS: ACETAMINOPHEN 325 MG TABLET PO PRN (04:19)
[2017-03-05] MEDS: PIPERACILLIN/TAZOBACTAM 3,375 MG in SODIUM CHLORIDE 0.9% 100 ML IV SCH ×3 (04:19→21:47)
[2017-03-05] MEDS: SODIUM CHLORIDE 0.9% 1,000 ML IV SCH ×3 (05:27→17:38)
[2017-03-05 07:03] LABS: Basophils # 0.1 10*3/uL (0.0-0.2); Basophils % 0.2 % (0.0-0.8); Eosinophils # 0.1 10*3/uL (0.0-0.87); Eosinophils % 0.3 % (0.00-10.9); Hematocrit 33.8 VOL% (42.0-52.0); Hemoglobin 11.4 GM/DL (14.0-18.0); Immature Granulocytes Absolute 0.54 #; Lymphocytes # 1.6 10*3/uL (1.4-4.0); Mean Corpuscular HGB Conc 33.7 GM/DL (32-36); Mean Corpuscular Hemoglobin 28 PG (27-34); Mean Corpuscular Volume 82.2 FL (87-102); Mean Platelet Volume 9.9 FL (9.6-12.0); Monocytes # 1.5 10*3/uL (0.11-0.8); Monocytes % 5.6 % (1.7-12.7); Neutrophils # 23.2 10*3/uL (1.4-7.4); Neutrophils % 85.9 % (38.7-73.9); Platelet Count 306 T/CUMM (130-400); Red Blood Count 4.11 MC/CUMM (3.8-5.5); Red Cell Distribution Width 14.9 % (9.3-17.3)
[2017-03-05 07:37] LABS: Calcium 7.6 MG/DL (8.5-10.1); Potassium 4.5 MMOL/L (3.5-5.1)
[2017-03-05 07:44] LABS: Eosinophils 1 % (0-10); Lymphocytes 3 % (20-55); Segmented Neutrophils 87 % (50-85); Total Cells Counted 100
[2017-03-05 07:45] LABS: Burr Cells 2+; Platelet Estimate Adequate; Polychromasia Slight; Target Cells Slight
--- NOTE | 2017-03-05 08:09 | XRay Report ---
XR chest 2V Indication: Pleural effusion Comparison: Chest x-ray dated March 04, 2017 Technique: Frontal and lateral views of the chest. Findings: The cardiomediastinal silhouette is stable in configuration. Heart remains somewhat prominent. Right-sided chest tube again projects over the right CPA unchanged in appearance. Pigtail again is not deformed. Right mid and lower lung opacification and probable small pleural fluid appear unchanged. Scattered small lucencies projecting over the liver which could reflect trace air within the inferior pleural space. Small subcutaneous emphysema demonstrated within the right neck base. IMPRESSION: As above. PROCEDURE INTERPRETED AT [facility] DEPARTMENT OF RADIOLOGY Final Report Signed by: Dr Pedro Kothari
[2017-03-05] MEDS: DOCUSATE SODIUM 100 MG CAPSULE PO PRN (09:03)
[2017-03-05] MEDS: PANTOPRAZOLE 40 MG TABLET PO SCH (09:03)
[2017-03-05] MEDS: SOTALOL 80 MG TABLET PO SCH ×2 (09:04→21:47)
--- NOTE | 2017-03-05 09:17 | Pathology Report from [facility] ---
[facility] [place] ACCESSION # : [id number] PATIENT NAME : Kailee Garibay ORDERING DR : INEZ MURDOCK MD CLINICAL HX: Pleural Effusion POST-OP DX: Same SPECIMEN INFO: Fluid,Pleural,Right - 200 mls yellow, hazy with clot. CLASS: I CLASS COMMENTS: Blood, inflammation, protienaceous material. No atypia seen.CELL BLOCK: Same CLASS LEGEND: CLASS 0 Material inadequate for diagnosis because of (see comment) CLASS I Absence of atypical or abnormal cells CLASS II Atypical Cytology but no evidence of malignancy CLASS III Cytology suggestive of but not conclusive for malignancy CLASS IV Cytology strongly suggestive of malignancy CLASS V Cytology conclusive for malignancy COLLECTED DATE: 03/04/2017 [facility] REPORT DATE: 03/05/2017 ELECTRONICALLY SIGNED BY: James Khanna III, M.D. 03/05/2017 - 8:46:43 MTDVenita
--- NOTE | 2017-03-05 09:24 | Pulmonology Progress Note ---
Pulmonary - PN: Subj Interval history: Patient is a 56-year-old black man that had a pneumonia in his right lower lobe and comes back with a parapneumonic effusion. Yesterday he had a catheter placed and it is draining some. The pleural fluid does not look that purulent but it is an exudative effusion. He has had a low-grade fever with a temp of 100.4. He says he feels a little better today. He is not able to cough up much secretions however. He still has considerable right lower lobe consolidation. Will plan a bronchoscope tomorrow and check his airways and obtain cultures. So far nothing has grown out. Exam (Progress Note) - Constitutional Vitals: Period Temp Pulse Resp BP Sys/Markham Pulse Ox Last 24 Hr 97.4 F-102.7 F 77-96 16-26 114-137/61-93 90-99 Exam: General appearance: normal weight, no distress (He looks reasonably comfortable sitting up in bed. He does look like he feels better today.) - Head Head exam: Present: normal inspection, normocephalic - Eye Eye exam: Present: EOMI. Absent: scleral icterus Pupils: Present: JERRY - ENT ENT exam: Present: normal exam - Neck Neck exam: Present: normal inspection. Absent: lymphadenopathy, thyromegaly - Respiratory Respiratory exam: Present: decreased breath sounds (He does have decreased breath sounds in his right chest.), rhonchi. He has a small catheter in his right chest that is draining some. - Cardiovascular Cardiovascular exam: Present: regular rate and rhythm. Absent: gallop, systolic murmur - GI/Abdominal GI/Abdominal exam: Present: normal bowel sounds, soft. Absent: organomegaly, tenderness - Extremities Exam Extremities exam: Absent: calf tenderness, edema - Back Exam Back exam: Present: normal inspection - Neurological Exam Neurological exam: Present: alert, oriented X3, CN II-XII intact - Psychiatric Psychiatric exam: Present: normal affect - Skin Skin exam: Present: warm, dry Results - Labs CBC & BMP: 03/05/17 06:16 03/05/17 06:16 - Diagnostic Findings Procedure: Chest x-ray: image reviewed by me, report reviewed by me (Chest x- ray shows improvement in pleural effusion but still has considerable consolidation in the right lung.) Assessment and Plan (1) Parapneumonic effusion Status: Acute Assessment and plan: The patient looks like he is developing a complicated parapneumonic effusion or possibly even empyema. He has a catheter draining now. He has an exudative effusion that seems to be coming out okay now. Current Visit: Yes (2) Right lower lobe pneumonia Status: Acute Assessment and plan: He is getting broad-spectrum penicillin along with other antibiotics. He still has considerable consolidation and will plan a bronchoscope tomorrow Current Visit: No
[2017-03-05] MEDS: VANCOMYCIN INJ 1,500 MG in SODIUM CHLORIDE 0.9% 500 ML IV SCH ×2 (09:41→17:38)
--- NOTE | 2017-03-05 11:49 | Hospitalist Progress Note ---
Assessment and Plan (1) Right lower lobe pneumonia Status: Acute Assessment and plan: 1)RLL pneumonia now with exudative effusion- Drain in place. Conitnue antibiotics, O2. WBC now up to 27. cultures negative form last hosp stay and this one too. Bronch tomorrow. Encouraged him to use hydrocodone as needed for cough so he can rest. sats good. Tmax 102.7. 2)afib- in NSR on sotolol 3)GERD- on PPI. Current Visit: No (2) GERD (gastroesophageal reflux disease) Status: Chronic Current Visit: No (3) Parapneumonic effusion Status: Acute Current Visit: Yes Hospitalist: Subjective Interval history: Mr Garibay is doing ok this morning though he is coughing more. He says his pain is not too bad. He denies shortness of breath at rest. He understands plans and rationale for bronch in the morning. Exam - Constitutional Vitals: Period Temp Pulse Resp BP Sys/Markham Pulse Ox Last 24 Hr 97.4 F-102.7 F 77-96 16-26 114-137/61-93 90-99 General appearance: no acute distress, over weight - Head Head exam: Present: normocephalic, atraumatic - Eye Eye exam: Present: EOMI. Absent: scleral icterus - Respiratory Respiratory exam: Present: decreased breath sounds (right base), rhonchi - Cardiovascular Cardiovascular exam: Present: regular rate and rhythm - GI/Abdominal GI/Abdominal exam: Present: normal bowel sounds, soft - Extremities Exam Extremities exam: Absent: edema Results - Labs CBC & BMP: 03/05/17 06:16 03/05/17 06:16 Lab Results: I have reviewed the past 24 hour labs
[2017-03-05] MEDS: LEVOFLOXACIN INJ 750 MG in PREMIX 1 EACH IV SCH (16:06)
[2017-03-05] MEDS: ENOXAPARIN 40 MG/0.4 ML SYRINGE SUBCUT SCH (16:07)
[2017-03-05] MEDS: guaiFENesin/DM ER 600-30 MG TABLET PO PRN (21:58)
[2017-03-05] MEDS: ZALEPLON 5 MG CAPSULE PO PRN (21:58)
[2017-03-06] MEDS: ALBUTEROL/IPRATROPIUM 3 ML NEB RESP TX SCH ×4 (00:30→19:35)
[2017-03-06] MEDS: VANCOMYCIN INJ 1,500 MG in SODIUM CHLORIDE 0.9% 500 ML IV SCH ×3 (00:59→16:44)
[2017-03-06] MEDS: SODIUM CHLORIDE 0.9% 1,000 ML IV SCH ×3 (03:54→16:44)
[2017-03-06] MEDS: PIPERACILLIN/TAZOBACTAM 3,375 MG in SODIUM CHLORIDE 0.9% 100 ML IV SCH ×3 (03:55→21:05)
[2017-03-06 05:41] LABS: Basophils # 0.1 10*3/uL (0.0-0.2); Basophils % 0.3 % (0.0-0.8); Eosinophils # 0.1 10*3/uL (0.0-0.87); Eosinophils % 0.5 % (0.00-10.9); Hematocrit 32.4 VOL% (42.0-52.0); Immature Granulocytes % 1.5 %; Immature Granulocytes Absolute 0.35 #; Lymphocytes # 1.4 10*3/uL (1.4-4.0); Lymphocytes % 6.2 % (21.2-54.2); Mean Corpuscular Hemoglobin 28 PG (27-34); Mean Corpuscular Volume 81.8 FL (87-102); Mean Platelet Volume 9.8 FL (9.6-12.0); Monocytes # 1.4 10*3/uL (0.11-0.8); Monocytes % 6.2 % (1.7-12.7); Neutrophils # 19.8 10*3/uL (1.4-7.4); Neutrophils % 85.3 % (38.7-73.9); Platelet Count 353 T/CUMM (130-400); Red Blood Count 3.96 MC/CUMM (3.8-5.5); Red Cell Distribution Width 14.8 % (9.3-17.3); White Blood Count 23.2 T/CUMM (4-12)
[2017-03-06 06:07] LABS: Eosinophils 1 % (0-10); Hypochromasia 1+; Lymphocytes 6 % (20-55); Microcytosis 1+; Platelet Estimate Normal; Segmented Neutrophils 89 % (50-85); Total Cells Counted 100
[2017-03-06 06:18] LABS: Calcium 7.8 MG/DL (8.5-10.1); Osmolality,Calculated 276.5 MOS/KG (273-304); Potassium 4.4 MMOL/L (3.5-5.1)
[2017-03-06] MEDS ORDERED: MIDAZOLAM 2 MG/2 ML VIAL ONE (07:07)
[2017-03-06] MEDS ORDERED: LIDOCAINE 4% TOP SOLN 50 ML BOTTLE RESP TX ONE ×2 (07:20→08:00)
[2017-03-06] MEDS ORDERED: MIDAZOLAM 2 MG/2 ML VIAL IV ONE ×2 (07:30→08:00)
[2017-03-06] MEDS ORDERED: MEPERIDINE 50 MG/1 ML VIAL IM ONE (07:30)
[2017-03-06] MEDS ORDERED: PROMETHAZINE 25 MG/1 ML VIAL IM ONE (07:30)
[2017-03-06] MEDS ORDERED: GLYCOPYRROLATE 0.4 MG/2 ML VIAL IM ONE (07:30)
--- NOTE | 2017-03-06 07:43 | Pulmonology Progress Note ---
Pulmonary - PN: Subj Interval history: Patient is a 56-year-old black man that had a pneumonia in his right lower lobe and comes back with a parapneumonic effusion. Yesterday he had a catheter placed and it is draining some. The pleural fluid does not look that purulent but it is an exudative effusion. So far the cultures have been negative. The patient is feeling a little better but still has a low-grade fever. He still has considerable cough. He feels like his breathing may be a little better. The chest tube drainage is not a large amount at all. Will proceed with a bronchoscope and check cultures. He will continue antibiotics. Exam (Progress Note) - Constitutional Vitals: Period Temp Pulse Resp BP Sys/Markham Pulse Ox Last 24 Hr 98.0 F-99.9 F 83-97 16-31 111-141/49-74 93-100 Exam: General appearance: normal weight, no distress (He looks reasonably comfortable sitting up in bed. He is still coughing some.) - Head Head exam: Present: normal inspection, normocephalic - Eye Eye exam: Present: EOMI. Absent: scleral icterus Pupils: Present: JERRY - ENT ENT exam: Present: normal exam - Neck Neck exam: Present: normal inspection. Absent: lymphadenopathy, thyromegaly - Respiratory Respiratory exam: Present: decreased breath sounds (He does have decreased breath sounds in his right chest.), rhonchi. He has a small catheter in his right chest that is draining some. - Cardiovascular Cardiovascular exam: Present: regular rate and rhythm. Absent: gallop, systolic murmur - GI/Abdominal GI/Abdominal exam: Present: normal bowel sounds, soft. Absent: organomegaly, tenderness - Extremities Exam Extremities exam: Absent: calf tenderness, edema - Back Exam Back exam: Present: normal inspection - Neurological Exam Neurological exam: Present: alert, oriented X3, CN II-XII intact, no focal deficit - Psychiatric Psychiatric exam: Present: normal affect - Skin Skin exam: Present: warm, dry Results - Labs CBC & BMP: 03/06/17 05:20 03/06/17 05:20 Assessment and Plan (1) Parapneumonic effusion Status: Acute Assessment and plan: The patient looks like he is developing a complicated parapneumonic effusion or possibly even empyema. He has a catheter draining now. He has an exudative effusion but has not had a lot of drainage lately. Clinically he is doing a little better. Current Visit: Yes (2) Right lower lobe pneumonia Status: Acute Assessment and plan: He is getting broad-spectrum penicillin along with other antibiotics. He still has considerable consolidation. Will plan a look at his airways today. Current Visit: No
--- NOTE | 2017-03-06 07:46 | Operative Note ---
Date of procedure: 03/06/17 Pre-op diagnosis: Right lower lobe pneumonia Post-op diagnosis: same Procedure: The patient is a 56-year-old that has a persistent right lower lobe infiltrate and complicated parapneumonic effusion. A bronchoscopy will be done to assess airways and obtain cultures. Timeout was performed to identify the patient. The patient is in the bronchoscopy lab. Preop: Demerol 50 mg, Phenergan 25 mg, Robinul 0.1 mg IM. Anesthesia: Versed 2 mg IVP, topical lidocaine. Procedure: The fiberoptic bronchoscope was passed transnasally through the vocal cords into the lungs. The bronchopulmonary segments were identified and specimens were obtained. Findings: The vocal cords, trachea, and coleman are unremarkable. The left upper lobe, lingula, and left lower lobe are normal. The right upper lobe and right middle lobe look unremarkable. The right lower lobe is a little inflamed but is open and unremarkable. There is yellow purulent secretions coming from the right lower lobe. Bronchoalveolar lavage was done in the right lower lobe and sent specimens for culture. He coughs some but tolerated the procedure well. There are no signs of obstruction or lesions. Impression: Purulent secretions coming from the right lower lobe consistent with pneumonia. Plan: We will continue antibiotics and respiratory therapy. Anesthesia: conscious sedation Surgeon / Physician: Moises Angel Estimated blood loss: none Specimens: other (Bronchoalveolar lavage specimen sent for culture.) Condition: stable Disposition: floor Results - Labs CBC & BMP: 03/06/17 05:20 03/06/17 05:20 Discharge Plan - Discharge Medications No Action Omeprazole [Prilosec] 20 mg PO DAILY guaiFENesin [Mucinex] 600 mg PO DAILY Cefuroxime Tab [Ceftin] 500 mg PO BID #14 tablet Sotalol [Betapace] 80 mg PO BID #60 tablet - Follow Up or Referral - Forms/Instructions
[2017-03-06] MEDS ORDERED: LIDOCAINE 2% VISCOUS 100 ML BOTTLE SWISH/SPIT ONE (08:00)
[2017-03-06] MEDS ORDERED: LIDOCAINE 1% 20 ML VIAL MISC INJ ONE (08:00)
[2017-03-06] MEDS: guaiFENesin/DM ER 600-30 MG TABLET PO PRN (10:07)
[2017-03-06] MEDS: SOTALOL 80 MG TABLET PO SCH ×2 (10:07→21:05)
[2017-03-06] MEDS: DOCUSATE SODIUM 100 MG CAPSULE PO PRN (10:07)
[2017-03-06] MEDS: PANTOPRAZOLE 40 MG TABLET PO SCH (10:12)
--- NOTE | 2017-03-06 11:35 | Hospitalist History & Physical ---
History of Present Illness History of present illness: Mr. Garibay is a 56 year old male Home Medications Medication Instructions Recorded Confirmed Type Omeprazole [Prilosec] 20 mg PO DAILY 02/25/17 03/03/17 History guaiFENesin [Mucinex] 600 mg PO DAILY 02/25/17 03/03/17 History Cefuroxime Tab [Ceftin] 500 mg PO BID #14 tablet 03/01/17 03/03/17 Rx Sotalol [Betapace] 80 mg PO BID #60 tablet 03/01/17 03/03/17 Rx Allergies Allergy/AdvReac Type Severity Reaction Status Date / Time No Known Allergies Allergy Verified 03/03/17 13:34 Medical,Surgical,& Family Hx - Medical History Cardio: History of: Cardiac Dysrhythmia (afib), Hypertension Psychological: No history of: Anxiety Disorders, ADHD, Behavior Problems, Bipolar Disorder, Depression, Previous Suicide Attempt, Psychiatric/Substance Abuse Tx, Schizophrenia, Violent Behavior, Psychiatric Problems Respiratory: History of: Pneumonia Gastrointestinal: History of: GERD Musculoskeletal: History of: Musculoskeletal Problems (wrist surgery 1994) - Surgical History Orthopedic Surgeries: Surgical HX of;: Orthopedic Surgery (Right wrist) - Family History Family History: Reports;: Family Heart Disease - Social History Smoking Status: Never smoker Frequency of Alcohol Use: None Type of Drug Use: None Exam - Constitutional Vitals: Period Temp Pulse Resp BP Sys/Markham Pulse Ox Last 24 Hr 98.0 F-99.9 F 83-98 18- 111-141/49-75 93-100 Results - Labs CBC & BMP: 03/06/17 05:20 03/06/17 05:20
--- NOTE | 2017-03-06 11:38 | Hospitalist Progress Note ---
<Sher Sanchez - Last Filed: 03/06/17 11:58> Assessment and Plan (1) Right lower lobe pneumonia Status: Acute Assessment and plan: Pt. has drain in place. Continue on IV antibiotics. Supplemental O2. WBC noted to be 23.2 today (down from 27). Temp is lower today. Current Visit: No (2) Parapneumonic effusion Status: Acute Current Visit: Yes (3) GERD (gastroesophageal reflux disease) Status: Chronic Assessment and plan: Continue PPI. Current Visit: No Hospitalist: Subjective Interval history: Pt. seen and examined this morning. Family at bedside; pt up in chair. s/p Bronchoscopy. Pt. denies any issues this morning. Reports breathing has improved. States he is coughing more but still having mild pain with the cough. Pt. was encouraged to use pillow as a splint. Exam - Constitutional Vitals: Period Temp Pulse Resp BP Sys/[place] Pulse Ox Last 24 Hr 98.0 F-99.9 F 83-98 18-31 111-141/49-75 93-100 General appearance: normal weight, no acute distress - Head Head exam: Present: normal inspection, normocephalic - Eye Eye exam: Present: EOMI. Absent: scleral icterus Pupils: Present: JERRY - Neck Neck exam: Present: normal inspection - Respiratory Respiratory exam: Present: clear to auscultation bilaterally. Absent: wheezes - Cardiovascular Cardiovascular exam: Present: regular rate and rhythm - GI/Abdominal GI/Abdominal exam: Present: normal bowel sounds, soft. Absent: tenderness - Extremities Exam Extremities exam: Present: normal capillary refill, full ROM. Absent: edema - Neurological Exam Neurological exam: Present: alert, oriented X3 - Psychiatric Psychiatric exam: Present: normal affect, normal mood - Skin Skin exam: Present: normal color, warm, dry Results - Labs CBC & BMP: 03/06/17 05:20 03/06/17 05:20 Lab Results: I have reviewed the past 24 hour labs <Debbie Delarosa - Last Filed: 03/06/17 17:18> Hospitalist: Subjective Interval history: Patient seen and examined independently of CHADWICK Sanchez, agree with assessment and plan as documented. Patient reports that he is feeling better today. Pulmonary assisting. Bronch today Exam - Constitutional Vitals: Period Temp Pulse Resp BP Sys/[place] Pulse Ox Last 24 Hr 98.0 F-100.2 F 84-98 18-31 111-141/49-75 92-100 Results - Labs CBC & BMP: 03/06/17 05:20 03/06/17 05:20
[2017-03-06] MEDS: ENOXAPARIN 40 MG/0.4 ML SYRINGE SUBCUT SCH (16:44)
[2017-03-06] MEDS: LEVOFLOXACIN INJ 750 MG in PREMIX 1 EACH IV SCH (19:03)
[2017-03-07] MEDS: ALBUTEROL/IPRATROPIUM 3 ML NEB RESP TX SCH ×4 (00:50→18:57)
[2017-03-07] MEDS: VANCOMYCIN INJ 1,500 MG in SODIUM CHLORIDE 0.9% 500 ML IV SCH ×3 (02:01→17:33)
[2017-03-07] MEDS: SODIUM CHLORIDE 0.9% 1,000 ML IV SCH ×2 (02:01→09:37)
[2017-03-07] MEDS: PIPERACILLIN/TAZOBACTAM 3,375 MG in SODIUM CHLORIDE 0.9% 100 ML IV SCH ×3 (04:38→20:36)
[2017-03-07 06:48] LABS: Basophils # 0.1 10*3/uL (0.0-0.2); Basophils % 0.3 % (0.0-0.8); Eosinophils # 0.1 10*3/uL (0.0-0.87); Eosinophils % 0.7 % (0.00-10.9); Hematocrit 30.6 VOL% (42.0-52.0); Hemoglobin 10.3 GM/DL (14.0-18.0); Immature Granulocytes % 0.7 %; Immature Granulocytes Absolute 0.12 #; Lymphocytes # 1.3 10*3/uL (1.4-4.0); Lymphocytes % 7.9 % (21.2-54.2); Mean Corpuscular HGB Conc 33.7 GM/DL (32-36); Mean Corpuscular Hemoglobin 28 PG (27-34); Mean Corpuscular Volume 82.9 FL (87-102); Mean Platelet Volume 9.5 FL (9.6-12.0); Monocytes # 1.4 10*3/uL (0.11-0.8); Monocytes % 8.4 % (1.7-12.7); Neutrophils # 13.3 10*3/uL (1.4-7.4); Platelet Count 405 T/CUMM (130-400); Red Blood Count 3.69 MC/CUMM (3.8-5.5); Red Cell Distribution Width 14.9 % (9.3-17.3); White Blood Count 16.3 T/CUMM (4-12)
--- NOTE | 2017-03-07 07:10 | XRay Report ---
Exam: XR chest 1V portable Date: 03/07/2017 4:00 AM Indication: Post bronchoscopy Comparison: 03/05/[address] scan 02/25/2017 Technical AP Findings:: Small pigtail catheter is present in the right base. There is atelectatic change infiltrate and effusion in the right base with underlying nodularity in the right perihilar region. Cardiomegaly is present. No pneumothorax present. Bony structures are otherwise intact. Impression: 1. Stable position of the right-sided pigtail catheter 2. Persistent atelectatic change infiltrate and effusion and/or mass lesion in the right perihilar region and base 3. Cardiomegaly 4. Overall no significant interval change PROCEDURE INTERPRETED AT [facility] DEPARTMENT OF RADIOLOGY Final Report Signed by: Dr. Albino No
[2017-03-07] MEDS: SOTALOL 80 MG TABLET PO SCH ×2 (09:37→20:35)
[2017-03-07] MEDS: PANTOPRAZOLE 40 MG TABLET PO SCH (09:37)
--- NOTE | 2017-03-07 10:12 | Pulmonology Progress Note ---
Pulmonary - PN: Subj Interval history: Patient is a 56-year-old black man that had a pneumonia in his right lower lobe and comes back with a parapneumonic effusion. Yesterday he had a catheter placed and it is draining some. The pleural fluid does not look that purulent but it is an exudative effusion. Yesterday we did a bronchoscope and cleared his airways. So far his cultures have been negative. He says he is feeling much better today and is breathing much better. The pleural catheter is not draining very much at all. His chest x-ray looks better and the catheter can be pulled. He will need to continue IV antibiotics. Exam (Progress Note) - Constitutional Vitals: Period Temp Pulse Resp BP Sys/[place] Pulse Ox Last 24 Hr 99 F-100.2 F 82-99 18-20 118-147/65-71 91-98 Exam: General appearance: normal weight, no distress (He looks comfortable sitting up in a chair.) - Head Head exam: Present: normal inspection, normocephalic - Eye Eye exam: Present: EOMI. Absent: scleral icterus Pupils: Present: JERRY - ENT ENT exam: Present: normal exam - Neck Neck exam: Present: normal inspection. Absent: lymphadenopathy, thyromegaly - Respiratory Respiratory exam: Present: decreased breath sounds (He does have decreased breath sounds in his right chest.), He is moving air fairly well and his lungs sound better. The catheter is not draining very much at all. - Cardiovascular Cardiovascular exam: Present: regular rate and rhythm. Absent: gallop, systolic murmur - GI/Abdominal GI/Abdominal exam: Present: normal bowel sounds, soft. Absent: organomegaly, tenderness - Extremities Exam Extremities exam: Absent: calf tenderness, edema - Back Exam Back exam: Present: normal inspection - Neurological Exam Neurological exam: Present: alert, oriented X3, CN II-XII intact, no focal deficit - Psychiatric Psychiatric exam: Present: normal affect - Skin Skin exam: Present: warm, dry Results - Labs CBC & BMP: 03/07/17 06:38 03/06/17 05:20 - Diagnostic Findings Procedure: Chest x-ray: image reviewed by me, report reviewed by me (Chest x- ray looks better with less effusion and decreased infiltrate.) Assessment and Plan (1) Parapneumonic effusion Status: Acute Assessment and plan: The patient has a parapneumonic effusion and is doing better now. So far cultures have been negative. The catheter can come out today. Current Visit: Yes (2) Right lower lobe pneumonia Status: Acute Assessment and plan: He is getting broad-spectrum penicillin along with other antibiotics. Clinically he is doing better and his x-rays a little better. Will continue with present therapy. Current Visit: No
--- NOTE | 2017-03-07 11:01 | XRay Report ---
Exam: XR chest post procedure Date: 03/07/2017 Indication: Post removal of thoracotomy tube right base Comparison: 03/07/2017 at 5:20 AM Technical: Inspiration and expiration imaging was obtained. Findings: The small pigtail thoracotomy tube has been removed. There is residual underlying atelectasis and some nodularity in the left infrahilar perihilar region again noted. Cardiomegaly is present. No obvious pneumothorax present on today's exam. Bony structures are otherwise intact. Impression: 1. Removal of the right-sided percutaneous thoracotomy catheter 2. Underlying residual atelectatic change, small effusions with suggestion of possible mass measuring approximately 3.8 cm in the right perihilar region are rounded area of atelectasis. Follow-up CT imaging may be beneficial for further evaluation. Patient had PE CT chest 02/25/2017. PROCEDURE INTERPRETED AT [facility] DEPARTMENT OF RADIOLOGY Final Report Signed by: Dr. Albino No
--- NOTE | 2017-03-07 14:32 | Hospitalist Progress Note ---
<Sher Sanchez - Last Filed: 03/07/17 14:36> Assessment and Plan (1) Right lower lobe pneumonia Status: Acute Assessment and plan: Pt. has drain in place. Continue on IV antibiotics. Supplemental O2. WBC noted to be 23.2 today (down from 27). Temp is lower today. 8/4 Drain has been removed. Pt. tolerated well. Continue on IV antibiotics. No fever noted. WBC continues to decrease. Current Visit: No (2) Parapneumonic effusion Status: Acute Current Visit: Yes (3) GERD (gastroesophageal reflux disease) Status: Chronic Assessment and plan: Continue PPI. Current Visit: No Hospitalist: Subjective Interval history: Patient seen and examined with present at the bedside. Patient is alert and oriented with no complaints. No apparent distress noted. Patient states that he feels much better and that he has not had any problems with his breathing. Drain has been removed side patient is not experiencing any difficulties. Continue current plan of care. Exam - Constitutional Vitals: Period Temp Pulse Resp BP Sys/[place] Pulse Ox Last 24 Hr 97.9 F-100.2 F 78-99 18-20 121-147/63-75 91-98 General appearance: normal weight, over weight - Head Head exam: Present: normal inspection, normocephalic - Eye Eye exam: Present: EOMI Pupils: Present: JERRY - ENT ENT exam: Present: normal exam - Neck Neck exam: Present: normal inspection - Respiratory Respiratory exam: Present: clear to auscultation bilaterally. Absent: wheezes - Cardiovascular Cardiovascular exam: Present: regular rate and rhythm - GI/Abdominal GI/Abdominal exam: Present: normal bowel sounds, soft. Absent: tenderness - Extremities Exam Extremities exam: Present: normal capillary refill, full ROM. Absent: edema - Neurological Exam Neurological exam: Present: alert, oriented X3 - Psychiatric Psychiatric exam: Present: normal affect, normal mood - Skin Skin exam: Present: normal color, warm, dry Results - Labs CBC & BMP: 03/07/17 06:38 03/06/17 05:20 <Debbie Delarosa - Last Filed: 03/07/17 16:36> Hospitalist: Subjective Interval history: Patient seen and examined independently of CHADWICK Sanchez, agree with assessment and plan as documented. Patient feeling better. Pig tail cath has been removed. Continue IV abx. Exam - Constitutional Vitals: Period Temp Pulse Resp BP Sys/[place] Pulse Ox Last 24 Hr 97.9 F-99.1 F 78-99 18-20 121-147/63-75 91-98 Results - Labs CBC & BMP: 03/07/17 06:38 03/06/17 05:20
[2017-03-07] MEDS: ENOXAPARIN 40 MG/0.4 ML SYRINGE SUBCUT SCH (17:33)
[2017-03-07] MEDS: LEVOFLOXACIN INJ 750 MG in PREMIX 1 EACH IV SCH (17:33)
[2017-03-07] MEDS: ACETAMINOPHEN 325 MG TABLET PO PRN (20:35)
[2017-03-07] MEDS: guaiFENesin/DM ER 600-30 MG TABLET PO PRN (20:35)
[2017-03-07] MEDS: ZALEPLON 5 MG CAPSULE PO PRN (21:36)
[2017-03-08] MEDS: ALBUTEROL/IPRATROPIUM 3 ML NEB RESP TX SCH ×4 (00:14→19:16)
[2017-03-08] MEDS: VANCOMYCIN INJ 1,500 MG in SODIUM CHLORIDE 0.9% 500 ML IV SCH ×3 (00:18→17:11)
[2017-03-08] MEDS: SODIUM CHLORIDE 0.9% 1,000 ML IV SCH ×3 (00:40→17:46)
[2017-03-08] MEDS: PIPERACILLIN/TAZOBACTAM 3,375 MG in SODIUM CHLORIDE 0.9% 100 ML IV SCH ×3 (03:51→19:59)
[2017-03-08 05:52] LABS: Basophils % 0.3 % (0.0-0.8); Eosinophils # 0.2 10*3/uL (0.0-0.87); Eosinophils % 1.1 % (0.00-10.9); Hematocrit 29.7 VOL% (42.0-52.0); Hemoglobin 10.2 GM/DL (14.0-18.0); Immature Granulocytes % 0.7 %; Lymphocytes # 1.3 10*3/uL (1.4-4.0); Lymphocytes % 9.7 % (21.2-54.2); Mean Corpuscular HGB Conc 34.3 GM/DL (32-36); Mean Corpuscular Hemoglobin 28 PG (27-34); Mean Corpuscular Volume 81.4 FL (87-102); Mean Platelet Volume 9.5 FL (9.6-12.0); Monocytes # 1.2 10*3/uL (0.11-0.8); Monocytes % 8.3 % (1.7-12.7); Neutrophils # 11.1 10*3/uL (1.4-7.4); Neutrophils % 79.9 % (38.7-73.9); Platelet Count 438 T/CUMM (130-400); Red Blood Count 3.65 MC/CUMM (3.8-5.5); Red Cell Distribution Width 14.8 % (9.3-17.3); White Blood Count 13.9 T/CUMM (4-12)
[2017-03-08 06:17] LABS: Magnesium 2.2 MG/DL (1.8-2.4); Osmolality,Calculated 277.4 MOS/KG (273-304); Potassium 4.2 MMOL/L (3.5-5.1)
[2017-03-08] MEDS: PANTOPRAZOLE 40 MG TABLET PO SCH (09:03)
[2017-03-08] MEDS: SOTALOL 80 MG TABLET PO SCH ×2 (09:04→20:00)
--- NOTE | 2017-03-08 09:37 | Pulmonology Progress Note ---
Pulmonary - PN: Subj Interval history: Patient is a 56-year-old black man that had a pneumonia in his right lower lobe and comes back with a parapneumonic effusion. He had a catheter draining his right chest for a few days and is out now. Nothing has shown up on culture. He says he is feeling better with a slight catch in his side. He is ambulating okay and his shortness of breath is better. His T-max was 100.2. He has very little coughing and not much sputum. Overall he is feeling better and tolerating treatment. Exam (Progress Note) - Constitutional Vitals: Period Temp Pulse Resp BP Sys/[place] Pulse Ox Last 24 Hr 97.7 F-100.2 F 74-87 14-20 127-143/63-75 94-98 Exam: General appearance: normal weight, no distress (He looks comfortable sitting up in a chair. He seems to be breathing okay.) - Head Head exam: Present: normal inspection, normocephalic - Eye Eye exam: Present: EOMI. Absent: scleral icterus Pupils: Present: JERRY - ENT ENT exam: Present: normal exam - Neck Neck exam: Present: normal inspection. Absent: lymphadenopathy, thyromegaly - Respiratory Respiratory exam: Present: He still has diminished breath sounds in the right chest but is moving air okay. - Cardiovascular Cardiovascular exam: Present: regular rate and rhythm. Absent: gallop, systolic murmur - GI/Abdominal GI/Abdominal exam: Present: normal bowel sounds, soft. Absent: organomegaly, tenderness - Extremities Exam Extremities exam: Absent: calf tenderness, edema - Back Exam Back exam: Present: normal inspection - Neurological Exam Neurological exam: Present: alert, oriented X3, CN II-XII intact, no focal deficit - Psychiatric Psychiatric exam: Present: normal affect - Skin Skin exam: Present: warm, dry Results - Labs CBC & BMP: 03/08/17 05:21 03/08/17 05:21 Assessment and Plan (1) Parapneumonic effusion Status: Acute Assessment and plan: The patient has a parapneumonic effusion and is doing better now. So far cultures have been negative. The small catheter is out now. Clinically he is doing a little better. Current Visit: Yes (2) Right lower lobe pneumonia Status: Acute Assessment and plan: He is getting broad-spectrum penicillin along with other antibiotics. Clinically he is doing better and his x-rays a little better. We will continue IV antibiotics for now. Overall he appears stable. Current Visit: No
--- NOTE | 2017-03-08 16:30 | Hospitalist Progress Note ---
Assessment and Plan (1) Right lower lobe pneumonia Status: Acute Assessment and plan: Continue broad spectrum antibiotics Pulmonary assisting Bronchoscopy 03/06/17 with purulent secretions Leukocytosis improving Current Visit: No (2) GERD (gastroesophageal reflux disease) Status: Chronic Current Visit: No (3) Parapneumonic effusion Status: Acute Assessment and plan: Catheter removed 03/08/17 Current Visit: Yes Hospitalist: Subjective Interval history: No acute events overnight. Patient was ambulating around the halls yesterday. Only reports some mild sob with this. Exam - Constitutional Vitals: Period Temp Pulse Resp BP Sys/[place] Pulse Ox Last 24 Hr 97.7 F-100.2 F 74-88 14-20 127-143/64-73 94-98 General appearance: normal weight - Head Head exam: Present: normocephalic, atraumatic - Eye Eye exam: Present: EOMI Pupils: Present: JERRY - ENT ENT exam: Present: normal exam - Neck Neck exam: Present: normal inspection - Respiratory Respiratory exam: Present: clear to auscultation bilaterally. Absent: rhonchi, wheezes - Cardiovascular Cardiovascular exam: Present: regular rate and rhythm - GI/Abdominal GI/Abdominal exam: Present: normal bowel sounds, soft. Absent: tenderness, rebound - Extremities Exam Extremities exam: Present: normal inspection - Back Exam Back exam: Present: normal inspection - Neurological Exam Neurological exam: Present: alert, oriented X3 - Psychiatric Psychiatric exam: Present: normal affect, normal mood - Skin Skin exam: Present: warm, intact Results - Labs CBC & BMP: 03/08/17 05:21 03/08/17 05:21
[2017-03-08] MEDS: ENOXAPARIN 40 MG/0.4 ML SYRINGE SUBCUT SCH (16:39)
[2017-03-08] MEDS: LEVOFLOXACIN INJ 750 MG in PREMIX 1 EACH IV SCH (17:46)
[2017-03-08] MEDS: guaiFENesin/DM ER 600-30 MG TABLET PO PRN (20:00)
[2017-03-09] MEDS: ALBUTEROL/IPRATROPIUM 3 ML NEB RESP TX SCH ×4 (00:19→19:18)
[2017-03-09] MEDS: VANCOMYCIN INJ 1,500 MG in SODIUM CHLORIDE 0.9% 500 ML IV SCH ×3 (00:42→16:16)
[2017-03-09] MEDS: SODIUM CHLORIDE 0.9% 1,000 ML IV SCH ×3 (01:08→20:25)
[2017-03-09] MEDS: PIPERACILLIN/TAZOBACTAM 3,375 MG in SODIUM CHLORIDE 0.9% 100 ML IV SCH ×3 (03:29→20:25)
[2017-03-09 07:04] LABS: Hematocrit 31.1 VOL% (42.0-52.0); Hemoglobin 10.7 GM/DL (14.0-18.0); Red Blood Count 3.82 MC/CUMM (3.8-5.5); White Blood Count 11.9 T/CUMM (4-12)
[2017-03-09 07:05] LABS: Basophils # 0.1 10*3/uL (0.0-0.2); Basophils % 0.5 % (0.0-0.8); Eosinophils # 0.2 10*3/uL (0.0-0.87); Eosinophils % 1.5 % (0.00-10.9); Immature Granulocytes % 0.6 %; Immature Granulocytes Absolute 0.07 #; Lymphocytes # 1.4 10*3/uL (1.4-4.0); Lymphocytes % 11.4 % (21.2-54.2); Mean Corpuscular HGB Conc 34.4 GM/DL (32-36); Mean Corpuscular Hemoglobin 28 PG (27-34); Mean Corpuscular Volume 81.4 FL (87-102); Mean Platelet Volume 9.6 FL (9.6-12.0); Monocytes % 8.5 % (1.7-12.7); Neutrophils # 9.2 10*3/uL (1.4-7.4); Neutrophils % 77.5 % (38.7-73.9); Platelet Count 466 T/CUMM (130-400); Red Cell Distribution Width 14.6 % (9.3-17.3)
[2017-03-09] MEDS: PANTOPRAZOLE 40 MG TABLET PO SCH (08:50)
[2017-03-09] MEDS: SOTALOL 80 MG TABLET PO SCH ×2 (08:50→20:20)
[2017-03-09] MEDS ORDERED: methylPREDNISolone SOD SUC 40 MG/1 ML VIAL IV ONE (09:01)
--- NOTE | 2017-03-09 09:52 | Pulmonology Progress Note ---
Pulmonary - PN: Subj Interval history: Patient is a 56-year-old black man that had a pneumonia in his right lower lobe and comes back with a parapneumonic effusion. He had a catheter draining his right chest for a few days and is out now. Nothing has shown up on culture. He said he had a good night last night and is walking in the [place] some. He is not having any pleurisy now and no fever. His T-max was 99.1. He feels like his shortness of breath and cough are better. Overall he continues to improve. Exam (Progress Note) - Constitutional Vitals: Period Temp Pulse Resp BP Sys/[place] Pulse Ox Last 24 Hr 97.8 F-99.1 F 78-88 16-20 127-150/64-86 92-98 Exam: General appearance: normal weight, no distress (He looks comfortable sitting up in a chair. He seems to be breathing okay. He looks like he feels better today.) - Head Head exam: Present: normal inspection, normocephalic - Eye Eye exam: Present: EOMI. Absent: scleral icterus Pupils: Present: JERRY - ENT ENT exam: Present: normal exam - Neck Neck exam: Present: normal inspection. Absent: lymphadenopathy, thyromegaly - Respiratory Respiratory exam: Present: He still has diminished breath sounds in the right chest but is moving air okay. - Cardiovascular Cardiovascular exam: Present: regular rate and rhythm. Absent: gallop, systolic murmur - GI/Abdominal GI/Abdominal exam: Present: normal bowel sounds, soft. Absent: organomegaly, tenderness - Extremities Exam Extremities exam: Absent: calf tenderness, edema - Back Exam Back exam: Present: normal inspection - Neurological Exam Neurological exam: Present: alert, oriented X3, CN II-XII intact, no focal deficit - Psychiatric Psychiatric exam: Present: normal affect - Skin Skin exam: Present: warm, dry Results - Labs CBC & BMP: 03/09/17 06:24 03/08/17 05:21 Assessment and Plan (1) Parapneumonic effusion Status: Acute Assessment and plan: The patient has a parapneumonic effusion and is doing better now. So far cultures have been negative. The small catheter is out now. He is not having any pleurisy or shortness of breath now. Current Visit: Yes (2) Right lower lobe pneumonia Status: Acute Assessment and plan: He is getting broad-spectrum penicillin along with other antibiotics. Clinically he is doing better and his x-rays a little better. We will continue IV antibiotics for now. Will check a chest x-ray tomorrow and hopefully can go home soon. Current Visit: No
--- NOTE | 2017-03-09 12:28 | Hospitalist Progress Note ---
Assessment and Plan (1) Right lower lobe pneumonia Status: Acute Assessment and plan: Continue broad spectrum antibiotics Pulmonary assisting Bronchoscopy 03/06/17 with purulent secretions Leukocytosis resolved Current Visit: No (2) GERD (gastroesophageal reflux disease) Status: Chronic Current Visit: No (3) Parapneumonic effusion Status: Acute Assessment and plan: Catheter removed 03/08/17 Current Visit: Yes (4) Lip swelling Status: Acute Assessment and plan: Possible allergic reaction Improving with benadryl and solumedrol Current Visit: Yes Hospitalist: Subjective Interval history: No acute events overnight. Reports that he was feeling better until he had some strawberry yogurt and lip started swelling this morning. He reports that it does not feel as tight at this moment. Exam - Constitutional Vitals: Period Temp Pulse Resp BP Sys/[place] Pulse Ox Last 24 Hr 98.0 F-99.1 F 71-88 16-20 124-150/64-86 92-98 General appearance: normal weight - Head Head exam: Present: normocephalic, atraumatic - Eye Eye exam: Present: EOMI Pupils: Present: JERRY - ENT ENT exam: Present: normal exam - Neck Neck exam: Present: normal inspection - Respiratory Respiratory exam: Present: clear to auscultation bilaterally - Cardiovascular Cardiovascular exam: Present: regular rate and rhythm - GI/Abdominal GI/Abdominal exam: Present: normal bowel sounds, soft. Absent: tenderness, rebound - Extremities Exam Extremities exam: Present: normal inspection - Back Exam Back exam: Present: normal inspection - Neurological Exam Neurological exam: Present: alert, oriented X3 - Psychiatric Psychiatric exam: Present: normal affect, normal mood - Skin Skin exam: Present: warm, intact Results - Labs CBC & BMP: 03/09/17 06:24 03/08/17 05:21
[2017-03-09] MEDS: ENOXAPARIN 40 MG/0.4 ML SYRINGE SUBCUT SCH (16:17)
[2017-03-09] MEDS: LEVOFLOXACIN INJ 750 MG in PREMIX 1 EACH IV SCH (19:23)
[2017-03-09] MEDS: guaiFENesin/DM ER 600-30 MG TABLET PO PRN (20:20)
[2017-03-09] MEDS: ZALEPLON 5 MG CAPSULE PO PRN (21:58)
[2017-03-10] MEDS: SODIUM CHLORIDE 0.9% 1,000 ML IV SCH ×2 (00:24→08:55)
[2017-03-10] MEDS: VANCOMYCIN INJ 1,500 MG in SODIUM CHLORIDE 0.9% 500 ML IV SCH ×3 (00:27→16:09)
[2017-03-10] MEDS: ALBUTEROL/IPRATROPIUM 3 ML NEB RESP TX SCH ×4 (00:28→20:10)
[2017-03-10] MEDS: PIPERACILLIN/TAZOBACTAM 3,375 MG in SODIUM CHLORIDE 0.9% 100 ML IV SCH ×3 (04:03→20:22)
[2017-03-10 06:42] LABS: Basophils % 0.3 % (0.0-0.8); Eosinophils % 0.2 % (0.00-10.9); Hematocrit 28.2 VOL% (42.0-52.0); Hemoglobin 9.8 GM/DL (14.0-18.0); Immature Granulocytes % 0.5 %; Immature Granulocytes Absolute 0.07 #; Lymphocytes # 1.6 10*3/uL (1.4-4.0); Mean Corpuscular HGB Conc 34.8 GM/DL (32-36); Mean Corpuscular Hemoglobin 28 PG (27-34); Mean Corpuscular Volume 81.7 FL (87-102); Mean Platelet Volume 9.2 FL (9.6-12.0); Monocytes % 7.3 % (1.7-12.7); Neutrophils # 10.6 10*3/uL (1.4-7.4); Neutrophils % 79.7 % (38.7-73.9); Platelet Count 470 T/CUMM (130-400); Red Blood Count 3.45 MC/CUMM (3.8-5.5); Red Cell Distribution Width 14.7 % (9.3-17.3); White Blood Count 13.4 T/CUMM (4-12)
[2017-03-10 07:15] LABS: Calcium 8.5 MG/DL (8.5-10.1); Magnesium 2.1 MG/DL (1.8-2.4); Osmolality,Calculated 281.1 MOS/KG (273-304); Potassium 4.1 MMOL/L (3.5-5.1)
--- NOTE | 2017-03-10 08:33 | Pulmonology Progress Note ---
Pulmonary - PN: Subj Interval history: Patient is a 56-year-old black man that had a pneumonia in his right lower lobe and comes back with a parapneumonic effusion. He had a catheter draining his right chest for a few days and is out now. Nothing has shown up on culture. He said he had a good night last night and is walking in the [place] some. He is not having any pleurisy now and no fever. He states he feels a little better. He is not having any shortness of breath now. Will check a chest x-ray today. Exam (Progress Note) - Constitutional Vitals: Period Temp Pulse Resp BP Sys/[place] Pulse Ox Last 24 Hr 97.4 F-98.4 F 72-84 18-20 123-141/67-83 91-99 Exam: General appearance: normal weight, no distress (He looks comfortable sitting up in a chair. He seems to be breathing okay. He looks like he is moving around better. ) - Head Head exam: Present: normal inspection, normocephalic - Eye Eye exam: Present: EOMI. Absent: scleral icterus Pupils: Present: JERRY - ENT ENT exam: Present: normal exam - Neck Neck exam: Present: normal inspection. Absent: lymphadenopathy, thyromegaly - Respiratory Respiratory exam: Present: He still has diminished breath sounds in the right chest but is moving air okay. - Cardiovascular Cardiovascular exam: Present: regular rate and rhythm. Absent: gallop, systolic murmur - GI/Abdominal GI/Abdominal exam: Present: normal bowel sounds, soft. Absent: organomegaly, tenderness - Extremities Exam Extremities exam: Absent: calf tenderness, edema - Back Exam Back exam: Present: normal inspection - Neurological Exam Neurological exam: Present: alert, oriented X3, CN II-XII intact, no focal deficit - Psychiatric Psychiatric exam: Present: normal affect - Skin Skin exam: Present: warm, dry Results - Labs CBC & BMP: 03/10/17 06:31 03/10/17 06:31 Assessment and Plan (1) Parapneumonic effusion Status: Acute Assessment and plan: The patient has a parapneumonic effusion and is doing better now. So far cultures have been negative. The small catheter is out now. He says his chest feels better and no pleurisy. Current Visit: Yes (2) Right lower lobe pneumonia Status: Acute Assessment and plan: He is getting broad-spectrum penicillin along with other antibiotics. Clinically he is doing better and he is moving around with less symptoms. Will check a chest x-ray today. He should be ready to go home on antibiotics soon. Current Visit: No
[2017-03-10] MEDS: SOTALOL 80 MG TABLET PO SCH ×2 (08:46→20:08)
[2017-03-10] MEDS: PANTOPRAZOLE 40 MG TABLET PO SCH (08:47)
--- NOTE | 2017-03-10 11:00 | XRay Report ---
XR chest 2V Date: 03/10/2017 4:00 AM History: Right lower lobe pneumonia Comparison: 03/07/2017 Technique: PA and lateral chest Findings: The heart is minimally enlarged. Reduced atelectasis/infiltration at the lung bases. 68 mm lobulated density in the right perihilar location. Degenerative changes are noted. Impression: Reduced atelectasis/infiltration in the lung bases with residual small pleural effusions. Indeterminant lobulated 68 mm noncalcified density in the right perihilar location. This finding could be related to residual pneumonia but it is difficult to exclude additional underlying pathology and continued follow-up is recommended. PROCEDURE INTERPRETED AT [facility] DEPARTMENT OF RADIOLOGY Final Report Signed by: Dr. Daria Gilbert
--- NOTE | 2017-03-10 11:40 | Hospitalist Progress Note ---
Assessment and Plan (1) Right lower lobe pneumonia Status: Acute Assessment and plan: Continue broad spectrum antibiotics Pulmonary assisting Bronchoscopy 03/06/17 with purulent secretions Leukocytosis resolved Sounds like he might be able to be switched to po abx soon with possible discharge His sputum cultures did not grow anything Current Visit: No (2) GERD (gastroesophageal reflux disease) Status: Chronic Current Visit: No (3) Parapneumonic effusion Status: Acute Assessment and plan: Catheter removed 03/08/17 Current Visit: Yes (4) Lip swelling Status: Resolved Assessment and plan: allergic reaction Improved with benadryl and solumedrol Current Visit: Yes Hospitalist: Subjective Interval history: No acute events overnight. He feels much better. Reports that he has been ambulating around his room. Exam - Constitutional Vitals: Period Temp Pulse Resp BP Sys/[place] Pulse Ox Last 24 Hr 97.4 F-98.4 F 71-84 18-20 107-141/53-83 91-99 General appearance: normal weight - Head Head exam: Present: normocephalic, atraumatic - Eye Eye exam: Present: EOMI Pupils: Present: JERRY - ENT ENT exam: Present: normal exam - Neck Neck exam: Present: normal inspection - Respiratory Respiratory exam: Present: clear to auscultation bilaterally. Absent: wheezes - Cardiovascular Cardiovascular exam: Present: regular rate and rhythm - GI/Abdominal GI/Abdominal exam: Present: normal bowel sounds, soft. Absent: tenderness, rebound - Extremities Exam Extremities exam: Present: normal inspection - Back Exam Back exam: Present: normal inspection - Neurological Exam Neurological exam: Present: alert, oriented X3 - Psychiatric Psychiatric exam: Present: normal affect, normal mood - Skin Skin exam: Present: warm, intact Results - Labs CBC & BMP: 03/10/17 06:31 03/10/17 06:31
[2017-03-10] MEDS: ENOXAPARIN 40 MG/0.4 ML SYRINGE SUBCUT SCH (16:09)
[2017-03-10] MEDS: LEVOFLOXACIN INJ 750 MG in PREMIX 1 EACH IV SCH (19:10)
[2017-03-11] MEDS: VANCOMYCIN INJ 1,500 MG in SODIUM CHLORIDE 0.9% 500 ML IV SCH ×2 (00:25→08:35)
[2017-03-11] MEDS: ALBUTEROL/IPRATROPIUM 3 ML NEB RESP TX SCH ×2 (01:29→07:46)
[2017-03-11] MEDS: PIPERACILLIN/TAZOBACTAM 3,375 MG in SODIUM CHLORIDE 0.9% 100 ML IV SCH ×2 (04:28→11:21)
[2017-03-11 06:26] LABS: Basophils # 0.1 10*3/uL (0.0-0.2); Basophils % 0.5 % (0.0-0.8); Eosinophils # 0.2 10*3/uL (0.0-0.87); Hematocrit 29.9 VOL% (42.0-52.0); Immature Granulocytes % 0.6 %; Immature Granulocytes Absolute 0.06 #; Lymphocytes # 1.7 10*3/uL (1.4-4.0); Lymphocytes % 17.4 % (21.2-54.2); Mean Corpuscular HGB Conc 33.4 GM/DL (32-36); Mean Corpuscular Hemoglobin 28 PG (27-34); Mean Corpuscular Volume 83.5 FL (87-102); Mean Platelet Volume 9.6 FL (9.6-12.0); Monocytes % 10.7 % (1.7-12.7); Neutrophils # 6.6 10*3/uL (1.4-7.4); Neutrophils % 68.8 % (38.7-73.9); Platelet Count 506 T/CUMM (130-400); Red Blood Count 3.58 MC/CUMM (3.8-5.5); White Blood Count 9.6 T/CUMM (4-12)
[2017-03-11 07:01] LABS: Calcium 8.4 MG/DL (8.5-10.1); Magnesium 2.1 MG/DL (1.8-2.4); Osmolality,Calculated 278.3 MOS/KG (273-304); Potassium 4.4 MMOL/L (3.5-5.1)
[2017-03-11 07:12] LABS: Eosinophils 3 % (0-10); Giant Platelets Few; Hypochromasia 1+; Lymphocytes 14 % (20-55); Ovalocytes Slight; Platelet Estimate Increased; Segmented Neutrophils 73 % (50-85); Total Cells Counted 100
[2017-03-11] MEDS: SOTALOL 80 MG TABLET PO SCH (08:34)
[2017-03-11] MEDS: PANTOPRAZOLE 40 MG TABLET PO SCH (08:34)
--- NOTE | 2017-03-11 08:50 | Pulmonology Progress Note ---
Pulmonary - PN: Subj Interval history: Patient is a 56-year-old black man that had a pneumonia in his right lower lobe and comes back with a parapneumonic effusion. He had a catheter draining his right chest for a few days and is out now. Nothing has shown up on culture. He is feeling much better and his breathing is better. He is not short of breath with oxygen off. He is walking in the [place]. His chest x-ray does look better. Overall he is stable and can probably go home today. Exam (Progress Note) - Constitutional Vitals: Period Temp Pulse Resp BP Sys/[place] Pulse Ox Last 24 Hr 97.6 F-98.6 F 65-80 14-20 111-139/53-76 93-100 Exam: General appearance: normal weight, no distress (He looks comfortable sitting up in a chair. He seems to be breathing okay. He looks like he is moving around better. ) - Head Head exam: Present: normal inspection, normocephalic - Eye Eye exam: Present: EOMI. Absent: scleral icterus Pupils: Present: JERRY - ENT ENT exam: Present: normal exam - Neck Neck exam: Present: normal inspection. Absent: lymphadenopathy, thyromegaly - Respiratory Respiratory exam: Present: He still has diminished breath sounds in the right chest but is moving air okay. His lungs sound better today. - Cardiovascular Cardiovascular exam: Present: regular rate and rhythm. Absent: gallop, systolic murmur - GI/Abdominal GI/Abdominal exam: Present: normal bowel sounds, soft. Absent: organomegaly, tenderness - Extremities Exam Extremities exam: Absent: calf tenderness, edema - Back Exam Back exam: Present: normal inspection - Neurological Exam Neurological exam: Present: alert, oriented X3, CN II-XII intact, no focal deficit - Psychiatric Psychiatric exam: Present: normal affect - Skin Skin exam: Present: warm, dry Results - Labs CBC & BMP: 03/11/17 04:48 03/11/17 04:48 - Diagnostic Findings Procedure: Chest x-ray: image reviewed by me, report reviewed by me (Chest x- ray shows improvement in the right lower lobe infiltrate.) Assessment and Plan (1) Parapneumonic effusion Status: Acute Assessment and plan: The patient has a parapneumonic effusion and is doing better now. So far cultures have been negative. The small catheter is out now. He says his chest feels better and no pleurisy. His chest x-ray is improving. Current Visit: Yes (2) Right lower lobe pneumonia Status: Acute Assessment and plan: He is getting broad-spectrum penicillin along with other antibiotics. Clinically he is doing better and he is moving around with less symptoms. His chest x-ray is better and his breathing is better. He can go home today and will follow him up in the clinic. Current Visit: No
[2017-03-11 10:11] VITALS: BP 136/75
--- NOTE | 2017-03-11 10:13 | Discharge Summary ---
<Amber Stroudda - Last Filed: 03/11/17 09:58> Hospital Course - Hospital Course Hospital Course: This is a 56-year-old male that presented to the ED at [facility] on the afternoon of March 03, 2017 for the evaluation of chest pain.. Patient has a medical history significant for gastroesophageal reflux disease, pneumonia, and atrial fibrillation. Patient reported surgical history significant for right wrist surgery. The patient was recently discharged from [facility] 2 days prior to presentation for subsequent hospitalization for pneumonia. During the clinical encounter, the patient was treated for pneumonia and discharged home on oral antibiotic agents. He reported that his symptoms fail to improve. The patient reported inability to sleep last night and the pain worsened upon minimal movement and breathing. The reported that the patient did have fever which was noted at 101.8. As the patient's symptoms fail to improve, his became alarmed and subsequently brought him back to the emergency room for further evaluation. The patient was assessed at the time of ED presentation. Labs were obtained which were remarkable for white blood cell count of 19.9. Chest x-ray reported; internal partial clearing of the lung bases suggesting improving pulmonary edema is demonstrated; however improvement in atelectasis is also likely; discoid atelectasis remains within the right lower chest and partial atelectasis of the right lower lobe is suggested, small right-sided pleural effusion is present. CT Abdomen and Pelvis reported progression of right basilar pneumonia, now with cavitation of the right lower lobe infiltrate and loculated right parapneumonic effusion; however no acute intra-abdominal or pelvic pathology identified. The patient was subsequently admitted to the hospitalist service for continuation of care. Empiric antibiotic coverage, inhaled bronchodilators, and intravenous corticosteroids were initiated at the time of admission. Due to the severity of the patient's presenting symptoms, a pulmonary consultation was requested. The patient was seen and evaluated by pulmonology and recommendations were given. On March 04, 2017, the patient underwent ultrasound-guided thoracentesis for the treatment of a loculated right parapneumonic effusion in which 200 mL of straw-colored fluid was obtained and sent for analysis. On March 06, 2017, the patient underwent therapeutic fiberoptic bronchoscopy with therapeutic lavage in which specimens were obtained and sent for analysis. The patient's condition is stable. He has now reached maximal benefit of inpatient stay and will be discharged to home. Discharge Plan - Discharge Data Disposition: Disch To Home/Self Care - Discharge Medications New Amoxicillin/Clav Tab [Augmentin Tab] 875 mg PO BID #28 tablet Continue Omeprazole [Prilosec] 20 mg PO DAILY guaiFENesin [Mucinex] 600 mg PO DAILY Sotalol [Betapace] 80 mg PO BID #60 tablet Discontinued Cefuroxime Tab [Ceftin] 500 mg PO BID #14 tablet - Follow Up or Referral - Forms/Instructions Exam - Constitutional Vitals: Period Temp Pulse Resp BP Sys/[place] Pulse Ox Last 24 Hr 97.6 F-98.7 F 63-80 14-20 111-139/53-76 93-100 Discharge Results Procedures and tests throughout hospitalization: Pending Orders 03/04/17 09:28 Cytology Request Routine 03/04/17 12:30 AFB Culture/Smears Routine Fungal Culture w/ Prep Routine 03/06/17 07:47 AFB Culture/Smears Routine Fungal Culture w/ Prep Routine Labs on day of discharge: Labs from last 24 hours 03/11/17 03/11/17 04:48 04:48 WBC 9.6 RBC 3.58 L Hgb 10.0 L Hct 29.9 L MCV 83.5 L MCH 28 MCHC 33.4 RDW 15.0 Plt Count 506 H MPV 9.6 Neut % (Auto) 68.8 Lymph % (Auto) 17.4 L Ocean % (Auto) 10.7 Eos % (Auto) 2.0 Baso % (Auto) 0.5 Neut # (Auto) 6.6 Lymph # (Auto) 1.7 Ocean # (Auto) 1.0 H Eos # (Auto) 0.2 Baso # (Auto) 0.1 Total Counted 100 Immature Gran % 0.6 Nucleated RBC % 0.0 Immature Gran # 0.06 Segmented Neutrophils 73 Lymphocytes 14 L Monocytes 10 Eosinophils 3 Nucleated RBCs # 0.00 Platelet Estimate Increased Giant Platelets Few Immature Plt Fraction 0.0 Hypochromasia 1+ Ovalocytes Slight Sodium 141 Potassium 4.4 Chloride 108 H Carbon Dioxide 29 Anion Gap 8.4 BUN 8 Creatinine 1.10 GFR Calculation 106 BUN/Creatinine Ratio 7.00 Glucose 98 Calculated Osmolality 278.3 Calcium 8.4 L Magnesium 2.1 Preliminary micro results at discharge 03/06/17 07:47 Fungal Culture - Preliminary Bronchial Washings Loni albicans 03/06/17 07:47 Mycobacterial Culture - Preliminary Bronchial Washings No AFB isolated at 1 week 03/04/17 12:30 Mycobacterial Culture - Preliminary Pleural Fluid No AFB isolated at 1 week DS: Provider Date of admission: 03/03/17 15:44 Primary care physician: . No PCP Attending physician on admission: Jeffery Dowling MD Consults: 03/03/17 16:25 Consult to Physician [CONS] Routine Comment: pt of yours admitted w worsening pneum Consulting Provider: Moises Angel When should Consulting Provider be notified: Now Person Notified: md aware Date Notified: 03/04/17 Time Notified: 10:03 Discharging clinician: Charly Stroud CNP <Debbie Delarosa - Last Filed: 03/11/17 10:25> Diagnosis - Discharge Diagnosis (1) Right lower lobe pneumonia Status: Resolved (2) GERD (gastroesophageal reflux disease) Status: Chronic (3) Parapneumonic effusion Status: Resolved (4) Lip swelling Status: Resolved Discharge Plan - Discharge Data Condition at Discharge: Stable Discharge Diet: advance to your usual diet Activity: increase activity as tolerated Hygiene: no restrictions Weight Bearing at Discharge: weight bear as tolerated Contact your physician if you experience:: fever over 101, Shortness of breath Exam - Constitutional General appearance: normal weight - Head Head exam: Present: normocephalic, atraumatic - Eye Eye exam: Present: EOMI Pupils: Present: JERRY - ENT ENT exam: Present: normal exam - Neck Neck exam: Present: normal inspection - Respiratory Respiratory exam: Present: clear to auscultation bilaterally. Absent: rhonchi, wheezes - Cardiovascular Cardiovascular exam: Present: regular rate and rhythm - GI/Abdominal GI/Abdominal exam: Present: normal bowel sounds, soft. Absent: tenderness, rebound - Extremities Exam Extremities exam: Present: normal inspection - Back Exam Back exam: Present: normal inspection - Neurological Exam Neurological exam: Present: alert, oriented X3 - Psychiatric Psychiatric exam: Present: normal affect, normal mood - Skin Skin exam: Present: warm, intact
[2017-03-11] MEDS ORDERED: VANCOMYCIN INJ 1,500 MG in SODIUM CHLORIDE 0.9% 500 ML IV SCH (17:00)
== END 2017-03-11 12:05 | disposition home or self-care (01) | DRG 853 ==
LOC: N.ED 13:20 → N.EDINP 15:44 → SUATTDRO 15:44 → N.EDINP 17:20 → N.5E 17:29
PROVIDERS: ADMIT Internal Medicine; ATTEND Internal Medicine